=== PATIENT | male | born 1995 | race Hispanic/Latino ===

== ENCOUNTER 2018-01-26 23:21 | Inpatient (IN) | payer SELFPAY ==
[2018-01-27] MEDS ORDERED: NA CHLORIDE 0.9% 1,000 ML ONE ×2 (00:01→00:39)
[2018-01-27 00:07] LABS: Absolute Lymphocytes (CBC) 3.4 K/uL (0.7-4.9); Absolute Monocytes 1.2 K/uL (0.1-1.3); Absolute Neutrophil 13.2 K/uL (1.8-8.0); Basophils % 0.6 % (0-1.3); Hematocrit 43.2 % (39.6-49.0); Lymphocytes % 19.2 % (15.3-44.8); MCH 29.3 pg (27.0-35.0); MCV 86.6 fL (80-100); MPV 9.9 fL (7.6-11.3); Monocytes % 6.5 % (3.3-12.3); RBC Red Blood Cell Count 4.98 M/uL (4.33-5.43)
[2018-01-27 00:20] LABS: Albumin 3.5 g/dL (3.4-5.0); Bilirubin Direct 0.2 mg/dL (0-0.2); Bilirubin Total 0.6 mg/dL (0.2-1.0); Potassium 3.4 mmol/L (3.5-5.1); Protein, Total 8.4 g/dL (6.4-8.2)
[2018-01-27] MEDS ORDERED: VANCOMYCIN 0 GM/0 ML BAG ONE (00:39)
[2018-01-27] MEDS ORDERED: PIPER/TAZO/NS 3.375gm 3.375 GM/100 ML BAG ONE (00:39)
--- NOTE | 2018-01-27 01:47 | EDPHYS ---
Physician Documentation [facility] Name: Suhas Cardona Age: 22 yrs Sex: Male : 1995 Arrival Date: 01/26/2018 Time: 23:22 Bed 16 Private MD: ED Physician Mehrdad Echeverria HPI: 01/27 00:01 This 22 yrs old Male presents to ER via Ambulatory with complaints of Left Leg pm1 Pain. 00:01 The patient presents with pain. The complaints affect the left lower leg and medial pm1 aspect left thigh . Context: The problem was sustained at home, resulted from an unknown cause, the patient can fully bear weight, the patient is able to ambulate, Problem is a result from a previous injury: No. Onset: The symptoms/episode began/occurred 5 day(s) ago. Modifying factors: The symptoms are alleviated by nothing. the symptoms are aggravated by nothing. Associated signs and symptoms: Pertinent positives: fever, swelling, Pain, Pertinent negatives calf tenderness, numbness, tingling, shortness of breath, chest pain. Treatment prior to arrival includes: tylenol. Severity of symptoms: in the emergency department the symptoms are actually worse. The patient has not experienced similar symptoms in the past. The patient has not recently seen a physician. Historical: - Allergies: 01/26 23:31 No Known Allergies; lp1 - Home Meds: 23:31 None [Active]; lp1 - PMHx: 23:31 None; lp1 - PSHx: 23:31 None; lp1 - Immunization history:: Adult Immunizations up to date. - Social history:: Smoking status: Patient uses tobacco products, denies chronic smoking, but will smoke occasionally. - Ebola Screening: : No symptoms or risks identified at this time. ROS: 01/27 00:01 Eyes: Negative for injury, pain, redness, and discharge, ENT: Negative for injury, pm1 pain, and discharge, Neck: Negative for injury, pain, and swelling, Cardiovascular: Negative for chest pain, palpitations, and edema, Respiratory: Negative for shortness of breath, cough, wheezing, and pleuritic chest pain, Abdomen/GI: Negative for abdominal pain, nausea, vomiting, diarrhea, and constipation, Back: Negative for injury and pain, : Negative for injury, bleeding, discharge, and swelling. Neuro: Negative for headache, weakness, numbness, tingling, and seizure. Constitutional: Positive for chills, fever, Negative for poor PO intake. MS/extremity: Positive for pain, swelling, of the left lower leg. Skin: Positive for redness and warmth to left lower leg and medial left thigh. Exam: 00:01 Constitutional: This is a well developed, well nourished patient who is awake, alert, pm1 and in no acute distress. Head/Face: Normocephalic, atraumatic. Eyes: Pupils equal round and reactive to light, extra-ocular motions intact. Lids and lashes normal. Conjunctiva and sclera are non-icteric and not injected. Cornea within normal limits. Periorbital areas with no swelling, redness, or edema. ENT: Nares patent. No nasal discharge, no septal abnormalities noted. Tympanic membranes are normal and external auditory canals are clear. Oropharynx with no redness, swelling, or masses, exudates, or evidence of obstruction, uvula midline. Mucous membranes moist. Neck: Trachea midline, no thyromegaly or masses palpated, and no cervical lymphadenopathy. Supple, full range of motion without nuchal rigidity, or vertebral point tenderness. No Meningismus. Chest/axilla: Normal chest wall appearance and motion. Nontender with no deformity. No lesions are appreciated. Cardiovascular: Regular rate and rhythm with a normal S1 and S2. No gallops, murmurs, or rubs. Normal PMI, no JVD. No pulse deficits. Respiratory: Lungs have equal breath sounds bilaterally, clear to auscultation and percussion. No rales, rhonchi or wheezes noted. No increased work of breathing, no retractions or nasal flaring. Abdomen/GI: Soft, non-tender, with normal bowel sounds. No distension or tympany. No guarding or rebound. No evidence of tenderness throughout. Back: No spinal tenderness. No costovertebral tenderness. Full range of motion. 00:01 Musculoskeletal/extremity: Extremities: grossly normal except: noted in the left lower leg: swelling, tenderness. 00:01 Skin: Appearance: normal except for affected area, redness to left lower leg circumferentially and to medial aspect of left distal thigh. 00:01 Neuro: Orientation: is normal, Motor: is normal, moves all fours. Vital Signs: 01/26 23:32 BP 143 / 83; Pulse 133; Resp 18; Temp 99.1(O); Pulse Ox 96% on R/A; Weight 136.08 kg; lp1 Height 6 ft. 0 in. (182.88 cm); Pain 0/10; 01/27 00:30 BP 121 / 64; Pulse 106; Resp 18; Pulse Ox 98% on R/A; ea 01:04 BP 130 / 54; Pulse 108; Resp 18; Pulse Ox 95% ; ea 01:46 BP 132 / 67; Pulse 106; Resp 19; Temp 98.5; Pulse Ox 99% ; ea 02:01 BP 132 / 78; Pulse 106; Resp 19; Pulse Ox 97% ; ea 03:00 BP 148 / 84; Pulse 102; Resp 19 S; Pulse Ox 95% on 2 lpm NC; jd3 03:30 BP 137 / 73; Pulse 101; Resp 20 S; Pulse Ox 98% on 2 lpm NC; jd3 01/26 23:32 Body Mass Index 40.69 (136.08 kg, 182.88 cm) lp1 MDM: 01/26 23:27 Patient medically screened. pm1 01/27 01:27 Data reviewed: vital signs. Data interpreted: Pulse oximetry: on room air is 95 %. pm1 Interpretation: normal. Counseling: I had a detailed discussion with the patient and/or guardian regarding: the historical points, exam findings, and any diagnostic results supporting the discharge/admit diagnosis, lab results, the need for further work-up and treatment in the hospital. 01:32 Differential diagnosis: Cellulitis, DVT, Sepsis, Necrotizing fascitis. pm1 01:46 ED course: negative DVT study per U/S tech. pm1 01/26 23:36 Order name: Urine Microscopic Only pm1 01/26 23:58 Order name: Basic Metabolic Panel; Complete Time: 00:22 EDMS 01/26 23:58 Order name: Liver (Hepatic) Function; Complete Time: 00:22 EDMS 01/26 23:58 Order name: Lactate; Complete Time: 00:22 EDMS 01/26 23:58 Order name: CBC with Automated Diff; Complete Time: 00:22 EDMS 01/26 23:58 Order name: Blood Culture EDMS 01/26 23:58 Order name: Blood Culture EDMS 01/26 23:36 Order name: Extremity Venous Uni Ltd pm1 10/23 23:36 Order name: IV Saline Lock; Complete Time: 00:04 pm1 01/26 23:36 Order name: Labs collected and sent; Complete Time: 00:04 pm1 01/26 23:36 Order name: Tib Fib Left XRAY pm1 01/27 00:05 Order name: Procalcitonin; Complete Time: 01:02 EDMS Administered Medications: 01/26 23:55 Drug: NS 0.9% 1000 ml Route: IV; Rate: 1000 ml; Site: left antecubital; ea 01/27 01:00 Follow up: Response: No adverse reaction; IV Status: Completed infusion; IV Intake: ea 1000ml 00:35 Drug: Zosyn 3.375 grams Route: IVPB; Infused Over: 60 mins; Site: left antecubital; ea 02:00 Follow up: Response: No adverse reaction; IV Status: Completed infusion; IV Intake: ea 100ml 00:35 Drug: NS 0.9% 1000 ml Route: IV; Rate: 1000 ml; Site: left antecubital; ea 02:00 Follow up: Response: No adverse reaction; IV Status: Completed infusion ea 02:01 Drug: vancoMYCIN 1 grams Route: IVPB; Infused Over: 2 hrs; Site: left antecubital; ea 03:50 Follow up: Response: No adverse reaction; IV Status: Completed infusion jd3 Disposition: 05:46 Co-signature as Attending Physician, Mehrdad Echeverria MD I agree with the assessment and tw4 plan of care. Disposition: 01/27/18 01:47 Hospitalization ordered by Reina Rock for Inpatient Admission. Preliminary diagnosis is Cellulitis of left lower limb. - Bed requested for Telemetry/MedSurg (Inpatient). - Status is Inpatient Admission. jd3 - Condition is Stable. - Problem is new. - Symptoms have improved. UTI on Admission? No Signatures: Dispatcher [employer] Brittani Holt RN RN kl Pena, Laura, RN RN lp1 Griffin Leon, LEAD WEB APPLICATION DEVELOPER LEAD WEB APPLICATION DEVELOPER pm1 Shanna Pandey RN RN ea Davies, Jonathon, RN RN jd3 Wadley, Terrence, MD MD tw4 Corrections: (The following items were deleted from the chart) 00:05 01/26 23:58 Prolactin ordered. EDMS EDMS 01/27 01:29 01:15 BASIC METABOLIC PANEL+C.LAB.BRZ ordered. EDNM EDMS 01:15 CBC+H.LAB.BRZ ordered. EDNM EDMS 01:15 HEPATIC FUNCTION+C.LAB.BRZ ordered. EDMS EDMS 01:15 BLOOD CULTURE*+BA.LAB.BRZ ordered. EDNM EDMS : 01:15 Procalcitonin+C.LAB.BRZ ordered. EDNM EDMS 01:15 LACTATE+C.LAB.BRZ ordered. [facility] EDNM :52 01:47 Hospitalization Ordered by Reina Rock MD for Observation. Preliminary pm1 diagnosis is Cellulitis of left lower limb. Bed requested for Telemetry/MedSurg (observation). Status is Observation. Condition is Stable. Problem is new. Symptoms have improved. UTI on Admission? No. pm1 01:57 01:32 Differential diagnosis: Cellulitis, DVT, Sepsis pm1 pm1 03:37 01:52 01/27/2018 01:47 Hospitalization Ordered by Reina Rock MD for Inpatient kl Admission. Preliminary diagnosis is Cellulitis of left lower limb. Bed requested for Telemetry/MedSurg (Inpatient). Status is Inpatient Admission. Condition is Stable. Problem is new. Symptoms have improved. UTI on Admission? No. pm1 03:54 03:37 01/27/2018 01:47 Hospitalization Ordered by Reina Rock MD for Inpatient jd3 Admission. Preliminary diagnosis is Cellulitis of left lower limb. Bed requested for Telemetry/MedSurg (Inpatient). Status is Inpatient Admission. Condition is Stable. Problem is new. Symptoms have improved. UTI on Admission? No. kl
--- NOTE | 2018-01-27 01:47 | ER ---
Nurse's Notes [facility] Name: Suhas Cardona Age: 22 yrs Sex: Male : 1995 Arrival Date: 01/26/2018 Time: 23:22 Bed 16 Private MD: Diagnosis: Cellulitis of left lower limb Presentation: 01/26 23:30 Presenting complaint: Patient states: Left lower leg swelling x 5 days; denies pain lp1 when walking; redness and hot to touch. Transition of care: patient was not received from another setting of care. Onset of symptoms was January 26, 2018. Risk Assessment: Do you want to hurt yourself or someone else? Patient reports no desire to harm self or others. Initial Sepsis Screen: Does the patient meet any 2 criteria? No. Patient's initial sepsis screen is negative. Does the patient have a suspected source of infection? No. Patient's initial sepsis screen is negative. Care prior to arrival: None. 23:30 Method Of Arrival: Ambulatory lp1 23:30 Acuity: JUNIOR 3 lp1 Historical: - Allergies: 23:31 No Known Allergies; lp1 - Home Meds: 23:31 None [Active]; lp1 - PMHx: 23:31 None; lp1 - PSHx: 23:31 None; lp1 - Immunization history:: Adult Immunizations up to date. - Social history:: Smoking status: Patient uses tobacco products, denies chronic smoking, but will smoke occasionally. - Ebola Screening: : No symptoms or risks identified at this time. Screenin:32 Abuse screen: Denies threats or abuse. Denies injuries from another. Nutritional lp1 screening: No deficits noted. Tuberculosis screening: No symptoms or risk factors identified. Fall Risk None identified. Assessment: 23:35 General: Appears in no apparent distress. Behavior is calm, cooperative. Pain: Denies ea pain. Neuro: Level of Consciousness is awake, alert, obeys commands, Oriented to person, place, time, situation. Cardiovascular: Heart tones S1 S2 present Patient's skin is warm and dry. Respiratory: Airway is patent Respiratory effort is even, unlabored, Respiratory pattern is regular, symmetrical. GI: No signs and/or symptoms were reported involving the gastrointestinal system. Derm: Skin temperature is warm Redness, edema and warmth noted to right leg. Musculoskeletal: Range of motion: limited in left knee. 01/27 00:00 Reassessment: Patient and/or family updated on plan of care and expected duration. Pain ea level reassessed. Patient is alert, oriented x 3, equal unlabored respirations, skin warm/dry/pink. 01:03 Reassessment: Patient and/or family updated on plan of care and expected duration. Pain ea level reassessed. Patient is alert, oriented x 3, equal unlabored respirations, skin warm/dry/pink. Awaiting on Ultrasound. 01:38 Reassessment: Patient and/or family updated on plan of care and expected duration. Pain ea level reassessed. Patient is alert, oriented x 3, equal unlabored respirations, skin warm/dry/pink. air moving technician at bedside. 02:01 Reassessment: Patient and/or family updated on plan of care and expected duration. Pain ea level reassessed. Patient is alert, oriented x 3, equal unlabored respirations, skin warm/dry/pink. 03:00 Reassessment: Patient appears in no apparent distress at this time. Patient and/or jd3 family updated on plan of care and expected duration. Pain level reassessed. Patient is alert, oriented x 3, equal unlabored respirations, skin warm/dry/pink. 03:48 Reassessment: Patient appears in no apparent distress at this time. Patient and/or jd3 family updated on plan of care and expected duration. Pain level reassessed. Patient is alert, oriented x 3, equal unlabored respirations, skin warm/dry/pink. Vital Signs: 01/26 23:32 BP 143 / 83; Pulse 133; Resp 18; Temp 99.1(O); Pulse Ox 96% on R/A; Weight 136.08 kg; lp1 Height 6 ft. 0 in. (182.88 cm); Pain 0/10; 01/27 00:30 BP 121 / 64; Pulse 106; Resp 18; Pulse Ox 98% on R/A; ea 01:04 BP 130 / 54; Pulse 108; Resp 18; Pulse Ox 95% ; ea 01:46 BP 132 / 67; Pulse 106; Resp 19; Temp 98.5; Pulse Ox 99% ; ea 02:01 BP 132 / 78; Pulse 106; Resp 19; Pulse Ox 97% ; ea 03:00 BP 148 / 84; Pulse 102; Resp 19 S; Pulse Ox 95% on 2 lpm NC; jd3 03:30 BP 137 / 73; Pulse 101; Resp 20 S; Pulse Ox 98% on 2 lpm NC; jd3 01/26 23:32 Body Mass Index 40.69 (136.08 kg, 182.88 cm) lp1 ED Course: 01/26 23:22 Patient arrived in ED. ds1 23:24 Griffin Leon NP is PHCP. pm1 23:24 Mehrdad Echeverria MD is Attending Physician. pm1 23:31 Triage completed. lp1 23:32 Arm band placed on left wrist. lp1 23:40 Inserted saline lock: 20 gauge in left antecubital area, using aseptic technique. Blood ea collected. 23:51 Shanna Pandey RN is Primary Nurse. ea 01/27 00:02 Patient has correct armband on for positive identification. Bed in low position. Call ea light in reach. Side rails up X2. 01:33 X-ray completed. Portable x-ray completed in exam room. Patient tolerated procedure kw well. 01:33 Radiology exam delayed due to ORDERS NOT CROSSING OVER. kw 01:34 Tib Fib Left XRAY In Process Unspecified. EDMS 01:46 Reina Rock MD is Hospitalizing Provider. pm1 02:00 Ultrasound completed. Patient tolerated well. aa4 02:02 No provider procedures requiring assistance completed. Patient admitted, IV remains in ea place. 02:18 Primary Nurse role handed off by Shanna Pandey RN jd3 02:18 Don Ren RN is Primary Nurse. jd3 Administered Medications: 01/26 23:55 Drug: NS 0.9% 1000 ml Route: IV; Rate: 1000 ml; Site: left antecubital; ea 01/27 01:00 Follow up: Response: No adverse reaction; IV Status: Completed infusion; IV Intake: ea 1000ml 00:35 Drug: Zosyn 3.375 grams Route: IVPB; Infused Over: 60 mins; Site: left antecubital; ea 02:00 Follow up: Response: No adverse reaction; IV Status: Completed infusion; IV Intake: ea 100ml 00:35 Drug: NS 0.9% 1000 ml Route: IV; Rate: 1000 ml; Site: left antecubital; ea 02:00 Follow up: Response: No adverse reaction; IV Status: Completed infusion ea 02:01 Drug: vancoMYCIN 1 grams Route: IVPB; Infused Over: 2 hrs; Site: left antecubital; ea 03:50 Follow up: Response: No adverse reaction; IV Status: Completed infusion suzy Intake: 01:00 IV: 1000ml; Total: 1000ml. ea 02:00 IV: 100ml; Total: 1100ml. ea Outcome: 01:47 Decision to Hospitalize by Provider. pm1 02:02 Instructed on the need for admit, Demonstrated understanding of instructions. ea 03:45 Admitted to Med/surg accompanied by tech, via wheelchair, room 424, with chart, Report jd3 called to Denis ABDUL 03:45 Condition: stable 03:54 Patient left the ED. suzy Signatures: Dispatcher [employer] EDIL Pinky Finney ds1 Savita Barajas aa4 Mandie Maria Laura, RN RN lp1 Griffin Leon NP SPOOLING OPERATOR pm1 Shanna Pandey RN RN ea Davies, Jonathon, RN RN jd3
[2018-01-27] MEDS ORDERED: VANCOMYCIN 1 GM/250 ML BAG ONE (01:55)
--- NOTE | 2018-01-27 03:34 | P.HP ---
Certification for Inpatient Patient admitted to: Inpatient With expected LOS: >2 Midnights Practitioner: I am a practitioner with admitting privileges, knowledge of patient current condition, hospital course, and medical plan of care. Services: Services provided to patient in accordance with Admission requirements found in Title 42 Section 412.3 of the Code of Federal Regulations Patient History Date of Service: 01/27/18 Reason for admission: Lower extremity cellulitis History of Present Illness: Mr Cardona is a 22-year-old male with history of obesity, start about 5 days ago with left lower extremity swelling and progressive pain. He denied any trauma in this leg. He also denied fever or sweating episodes however has had some chills. Over the time he noticed he stated was increasing the swelling, and he decided to come to ER today for evaluation. He has never had similar symptoms in the past. Lab work remarkable for leukocytosis 17.9 K, lactate and procalcitonin are within normal limits. Allergies No Known Allergies Allergy (Unverified 05/11/16 21:26) Home medications list reviewed: Yes - Past Medical/Surgical History -: Obesity Past Surgical History: Reviewed- Non-Contributory - Family History Family History: Reviewed- Non-Contributory - Social History Smoking Status: Current some day smoker Counseled patient to stop smoking for: less than 10 minutes Smoking therapy provided: Yes Alcohol use: Yes CD- Drugs: No Place of Residence: Home Review of Systems 10-point ROS is otherwise unremarkable Physical Examination - Physical Exam General: Alert, In no apparent distress HEENT: Atraumatic, PERRLA, Mucous membr. moist/pink, EOMI, Sclerae nonicteric Neck: Supple, 2+ carotid pulse no bruit, No LAD, Without JVD or thyroid abnormality Respiratory: Clear to auscultation bilaterally, Normal air movement Cardiovascular: Regular rate/rhythm, Normal S1 S2 Gastrointestinal: Normal bowel sounds, No tenderness Musculoskeletal: No tenderness Integumentary: Tenderness/swelling (Left leg), Erythema, Warmth Neurological: Normal gait, Normal speech, Normal strength at 5/5 x4 extr, Normal tone, Normal affect Lymphatics: No axilla or inguinal lymphadenopathy - Studies Laboratory Data (last 24 hrs) 01/26/18 23:45: WBC 17.9 H, Hgb 14.6, Hct 43.2, Plt Count 201 01/26/18 23:45: Sodium 138, Potassium 3.4 L, BUN 18, Creatinine 1.20, Glucose 123 H, Total Bilirubin 0.6, AST 30, ALT 62, Alkaline Phosphatase 91 01/26/18 23:36: WBC Cancelled, Hgb Cancelled, Hct Cancelled, Plt Count Cancelled 01/26/18 23:36: Sodium Cancelled, Potassium Cancelled, BUN Cancelled, Creatinine Cancelled, Glucose Cancelled, Total Bilirubin Cancelled, AST Cancelled, ALT Cancelled, Alkaline Phosphatase Cancelled Assessment and Plan - Problems (Diagnosis) (1) Left leg cellulitis Current Visit: Yes Status: Acute (2) Obesity Current Visit: Yes Status: Acute Qualifiers: Obesity type: unspecified obesity type Obesity classification: unspecified obesity classification Serious obesity comorbidity presence: without serious comorbidity Qualified Code(s): E66.9 - Obesity, unspecified - Plan The patient will be admitted to the hospital due to left lower extremity cellulitis. Blood cultures are in process. He is hemodynamically stable, continue with empiric antibiotic treatment with vancomycin and Levaquin. - Advance Directives Does patient have a Living Will: No Does patient have a Durable POA for Healthcare: No - Code Status/Comfort Care Code Status Assessed: Yes Code Status: Full Code
[2018-01-27] MEDS ORDERED: ACETAMINOPHEN 500 MG TAB PO PRN (04:07)
[2018-01-27] MEDS ORDERED: ONDANSETRON 4 MG/2 ML VIAL IV PRN (04:07)
[2018-01-27] MEDS ORDERED: TRAMADOL HCL 50 MG TAB PO PRN (04:07)
[2018-01-27] MEDS ORDERED: VANCOMYCIN/NS 1 gm 1 GM/250 ML BAG IVPB ONE (04:45)
[2018-01-27 04:59] VITALS: BMI 49.2
[2018-01-27] MEDS: Levofloxacin 750mg IV 750 MG/150 ML BAG IV SCH (05:00)
[2018-01-27] MEDS: NA CHLORIDE 0.9% 1,000 ML IV SCH ×2 (05:00→15:04)
[2018-01-27 05:56] LABS: BUN Blood Urea Nitrogen 14 mg/dL (7-18); Bicarbonate 27 mmol/L (21-32); Glucose Level 119 mg/dL (74-106); Magnesium 2.1 mg/dL (1.8-2.4); Potassium 3.6 mmol/L (3.5-5.1); Sodium Level 141 mmol/L (136-145)
[2018-01-27] MEDS ORDERED: VANCOMYCIN 1 GM/VIAL ONE (06:04)
[2018-01-27] MEDS ORDERED: NA CHLORIDE 0.9% 100 ML IV ONE (06:05)
[2018-01-27] MEDS ORDERED: INFLUENZA VACCINE (for 3y+) 0.5 ML DOSE IMVAC ONE (08:00)
--- NOTE | 2018-01-27 08:05 | RAD REPORT ---
EXAM DESCRIPTION: USExtremity Venous Uni Ltd01/27/2018 2:02 am CLINICAL HISTORY: left leg pain and swelling. COMPARISON: None. FINDINGS: Left common femoral, superficial femoral, popliteal and posterior tibial veins are compre ssible and demonstrate augmentation. Doppler demonstrates good flow. IMPRESSION: No evidence of deep venous thrombosis involving the left lower extremity.
--- NOTE | 2018-01-27 08:06 | RAD REPORT ---
EXAM DESCRIPTION: Glynn Wood Left01/27/2018 1:35 am CLINICAL HISTORY: Left leg pain and swelling FINDINGS: No fracture is seen. No bony destructive lesion is noted Diffuse edema is present within the subcutaneous tissues which may indicate a cellulitis
[2018-01-27] MEDS ORDERED: POTASSIUM 25 MEQ EFFERV TAB PO ONE (09:00)
[2018-01-27] MEDS: VANCOMYCIN 2 GM in NA CHLORIDE 0.9% 500 ML IVPB SCH (16:44)
[2018-01-28] MEDS: NA CHLORIDE 0.9% 1,000 ML IV SCH ×3 (00:07→20:07)
[2018-01-28 00:55] LABS: Urine Appearance CLEAR; Urine Bilirubin NEGATIVE (NEG); Urine Blood NEGATIVE (NEG); Urine Color YELLOW; Urine Glucose NEGATIVE (NEG); Urine Protein NEGATIVE (NEG); Urine pH 6.5 (5.0-7.0)
[2018-01-28 00:57] LABS: Urine Microscopic Reflex NO UMIC
[2018-01-28] MEDS: Levofloxacin 750mg IV 750 MG/150 ML BAG IV SCH (03:24)
[2018-01-28 05:03] LABS: Basophils % 0.7 % (0-1.3); Eosinophils % 0.8 % (0-4.4); Hematocrit 40.4 % (39.6-49.0); Lymphocytes % 24.5 % (15.3-44.8); MCH 28.7 pg (27.0-35.0); MCV 88.2 fL (80-100); MPV 10.2 fL (7.6-11.3); Monocytes % 8.4 % (3.3-12.3); RBC Red Blood Cell Count 4.58 M/uL (4.33-5.43)
[2018-01-28 05:14] LABS: BUN Blood Urea Nitrogen 10 mg/dL (7-18); Bicarbonate 29 mmol/L (21-32); Glucose Level 113 mg/dL (74-106); Potassium 4.1 mmol/L (3.5-5.1); Sodium Level 141 mmol/L (136-145)
[2018-01-28] MEDS: VANCOMYCIN 2 GM in NA CHLORIDE 0.9% 500 ML IVPB SCH ×2 (05:30→17:14)
--- NOTE | 2018-01-28 13:22 | P.PN ---
Subjective Date of Service: 01/28/18 Chief Complaint: Lower extremity cellulitis Subjective: Tolerating diet, Ambulating, Improving, Doing well Review of Systems 10-point ROS is otherwise unremarkable Physical Examination - Vital Signs Temperature: 98 F Blood Pressure: 147/80 Pulse: 95 Respirations: 20 Pulse Ox (%): 94 - Physical Exam General: Alert, In no apparent distress, Obese HEENT: Atraumatic, PERRLA, EOMI Neck: Supple, JVD not distended Respiratory: Clear to auscultation bilaterally, Normal air movement Cardiovascular: Regular rate/rhythm, Normal S1 S2 Gastrointestinal: Normal bowel sounds, No tenderness Musculoskeletal: Erythema, Tenderness, Warmth Integumentary: No rashes Neurological: Normal speech, Normal tone, Normal affect Lymphatics: No axilla or inguinal lymphadenopathy - Studies Medications List Reviewed: Yes Assessment And Plan - Current Problems (Diagnosis) (1) Left leg cellulitis Onset Date: 01/28/18 Current Visit: Yes Status: Acute Plan: Most Likely 2.2 to Obesity and chronic Swelling -IV abx for now -Min Improvment -elevation and Wrap the leg -Monitor closely (2) Obesity Onset Date: 01/28/18 Current Visit: Yes Status: Chronic Qualifiers: Obesity type: unspecified obesity type Obesity classification: unspecified obesity classification Serious obesity comorbidity presence: without serious comorbidity Qualified Code(s): E66.9 - Obesity, unspecified Discharge Plan: Home Plan to discharge in: 48 Hours - Code Status/Comfort Care Code Status Assessed: Yes Critical Care: No
[2018-01-28] MEDS ORDERED: INFLUENZA VACCINE (for 3y+) 0.5 ML DOSE IMVAC ONE (15:00)
[2018-01-29] MEDS: NA CHLORIDE 0.9% 1,000 ML IV SCH ×2 (02:55→16:43)
[2018-01-29] MEDS: Levofloxacin 750mg IV 750 MG/150 ML BAG IV SCH (02:58)
[2018-01-29] MEDS: VANCOMYCIN 2 GM in NA CHLORIDE 0.9% 500 ML IVPB SCH (05:52)
[2018-01-29 06:49] LABS: BUN Blood Urea Nitrogen 9 mg/dL (7-18); Bicarbonate 29 mmol/L (21-32); Glucose Level 100 mg/dL (74-106); Magnesium 2.2 mg/dL (1.8-2.4); Potassium 3.7 mmol/L (3.5-5.1); Sodium Level 139 mmol/L (136-145)
[2018-01-29] MEDS ORDERED: POTASSIUM 25 MEQ EFFERV TAB PO ONE (09:00)
[2018-01-29] MEDS: SMZ./TMP. 800/160 MG TABLET PO SCH ×2 (11:09→21:30)
--- NOTE | 2018-01-29 14:11 | P.PN ---
Subjective Date of Service: 01/29/18 Chief Complaint: Lower extremity cellulitis Subjective: Tolerating diet, Ambulating, Improving, Doing well Review of Systems 10-point ROS is otherwise unremarkable Physical Examination - Vital Signs Temperature: 97.5 F Blood Pressure: 136/70 Pulse: 91 Respirations: 18 Pulse Ox (%): 95 - Physical Exam General: Alert, In no apparent distress HEENT: Atraumatic, PERRLA, EOMI Neck: Supple, JVD not distended Respiratory: Clear to auscultation bilaterally, Normal air movement Cardiovascular: Regular rate/rhythm, Normal S1 S2 Gastrointestinal: Normal bowel sounds, No tenderness Musculoskeletal: No tenderness Integumentary: Tenderness/swelling, Erythema, Warmth Neurological: Normal speech, Normal tone, Normal affect Lymphatics: No axilla or inguinal lymphadenopathy - Studies Medications List Reviewed: Yes Assessment And Plan - Current Problems (Diagnosis) (1) Left leg cellulitis Onset Date: 01/28/18 Current Visit: Yes Status: Acute Plan: Most Likely 2.2 to Obesity and chronic Swelling -IV abx for now -Min Improvment -elevation and Wrap the leg -Monitor closely (2) Obesity Onset Date: 01/28/18 Current Visit: Yes Status: Chronic Qualifiers: Obesity type: unspecified obesity type Obesity classification: unspecified obesity classification Serious obesity comorbidity presence: without serious comorbidity Qualified Code(s): E66.9 - Obesity, unspecified Discharge Plan: Home Plan to discharge in: 24 Hours - Code Status/Comfort Care Code Status Assessed: Yes Critical Care: No
[2018-01-29] MEDS ORDERED: VANCOMYCIN 2.25 GM in NA CHLORIDE 0.9% 500 ML IVPB SCH (17:00)
[2018-01-30] MEDS: NA CHLORIDE 0.9% 1,000 ML IV SCH ×2 (02:07→06:05)
[2018-01-30 06:29] LABS: BUN Blood Urea Nitrogen 11 mg/dL (7-18); Bicarbonate 27 mmol/L (21-32); Glucose Level 100 mg/dL (74-106); Potassium 3.9 mmol/L (3.5-5.1); Sodium Level 139 mmol/L (136-145)
[2018-01-30] MEDS: SMZ./TMP. 800/160 MG TABLET PO SCH (08:01)
[2018-01-30] MEDS ORDERED: POTASSIUM CL SA 10 MEQ TAB PO ONE (09:00)
[2018-01-30 10:42] VITALS: O2SAT 95
--- NOTE | 2018-01-30 13:07 | P.DS ---
Admission Date: 01/27/18 Discharge Date: 01/30/18 Disposition: ROUTINE DISCHARGE Discharge Condition: GOOD Reason for Admission: Lower extremity cellulitis - Problems (1) Left leg cellulitis Onset Date: 01/28/18 Current Visit: Yes Status: Acute (2) Obesity Onset Date: 01/28/18 Current Visit: Yes Status: Chronic Qualifiers: Obesity type: unspecified obesity type Obesity classification: unspecified obesity classification Serious obesity comorbidity presence: without serious comorbidity Qualified Code(s): E66.9 - Obesity, unspecified Brief History of Present Illness: Mr Cardona is a 22-year-old male with history of obesity, start about 5 days ago with left lower extremity swelling and progressive pain. He denied any trauma in this leg. He also denied fever or sweating episodes however has had some chills. Over the time he noticed he stated was increasing the swelling, and he decided to come to ER today for evaluation. He has never had similar symptoms in the past. Lab work remarkable for leukocytosis 17.9 K, lactate and procalcitonin are within normal limits. Hospital Course: Overall during the hospital stay patient remained stable. Patient was initially admitted to the hospital for cellulitis of the lower extremity most likely secondary to chronic swelling. Patient was started on IV antibiotics here in the hospital. Blood culture and wound culture were done. Both the cultures came back negative. Patient then was switched over to Bactrim DS overall. Patient showed marked improvement in his cellulitis within 24-48 hr. Patient then was discharged home under stable condition was asked to continue taking Bactrim for next 14 days. Patient was also educated extensively on weight loss as it might be causing him to have chronic venous stasis with swelling in his legs. Patient demonstrated understanding and thus was discharged home under stable condition Vital Signs/Physical Exam: Temp Pulse Resp BP Pulse Ox 97 F 85 20 138/84 95 01/30/18 08:00 01/30/18 08:00 01/30/18 08:00 01/30/18 08:00 01/30/18 08:00 General: Alert, In no apparent distress, Obese HEENT: Atraumatic, PERRLA, EOMI Neck: Supple, JVD not distended Respiratory: Clear to auscultation bilaterally, Normal air movement Cardiovascular: Regular rate/rhythm, Normal S1 S2 Gastrointestinal: Normal bowel sounds, No tenderness Musculoskeletal: No tenderness Integumentary: No rashes Neurological: Normal speech, Normal tone, Normal affect Lymphatics: No axilla or inguinal lymphadenopathy Laboratory Data at Discharge: WBC 12.2 K/uL (4.3-10.9) H D 01/28/18 03:56 Hgb 13.1 g/dL (13.6-17.9) L 01/28/18 03:56 Hct 40.4 % (39.6-49.0) 01/28/18 03:56 Plt Count 207 K/uL (152-406) 01/28/18 03:56 Sodium 139 mmol/L (136-145) 01/30/18 05:54 Potassium 3.9 mmol/L (3.5-5.1) 01/30/18 05:54 BUN 11 mg/dL (7-18) 01/30/18 05:54 Creatinine 0.70 mg/dL (0.55-1.3) 01/30/18 05:54 Glucose 100 mg/dL (74-106) 01/30/18 05:54 Magnesium 2.2 mg/dL (1.8-2.4) 01/29/18 06:00 Total Bilirubin 0.6 mg/dL (0.2-1.0) 01/26/18 23:45 AST 30 U/L (15-37) 01/26/18 23:45 ALT 62 U/L (12-78) 01/26/18 23:45 Alkaline Phosphatase 91 U/L (45-117) 01/26/18 23:45 Triglycerides 121 mg/dL (<150) 01/29/18 10:26 Cholesterol 101 mg/dL (<200) 01/29/18 10:26 HDL Cholesterol 28 mg/dL (40-60) L 01/29/18 10:26 Cholesterol/HDL Ratio 3.61 01/29/18 10:26 Home Medications: Smz./Tmp. [Bactrim Ds 800 MG/160 MG*] 1 tab PO BID #28 tab 01/30/18 New Medications: Smz./Tmp. [Bactrim Ds 800 MG/160 MG*] 1 tab PO BID #28 tab Patient Discharge Instructions: Please f.u with PCP in 1 to 2 week post discharge. New medication. Bactrim DS BID for 14 days Diet: Regular Activity: Ad serenity
[2018-01-30 14:05] VITALS: BP 137/76; TEMP 98
== END 2018-01-30 13:50 | disposition home or self-care (01) | DRG 603 ==
LOC: ER 23:21 → ERHOLD 01-27 01:50 → 4TH 01-27 03:47
PROVIDERS: ADMIT Internal Medicine; ATTEND Family Medicine
DX: L03.116 Cellulitis of left lower limb (principal); F17.210 Nicotine dependence, cigarettes, uncomplicated
CPT/HCPCS: 36415; 80048; 80061; 80076; 80202; 81003; 83036; 83605; 83735; 84145; 85025; 87040; 93971; 96361; 96365; 96366; 96367; 99285; G0008; J2543; J3370; J7030; Q2035

== ENCOUNTER 2018-03-26 19:08 | Inpatient (IN) | payer SELFPAY ==
[2018-03-26 19:48] LABS: Urine Blood 1+ (NEG); Urine Glucose NEGATIVE (NEG); Urine Protein TRACE (NEG); Urine pH 7.5 (5.0-7.0)
[2018-03-26 19:50] LABS: Absolute Neutrophil 17.5 K/uL (1.8-8.0); Basophils % 0.4 % (0-1.3); MPV 9.9 fL (7.6-11.3); RBC Red Blood Cell Count 5.32 M/uL (4.33-5.43)
--- NOTE | 2018-03-26 19:51 | EDPHYS ---
Physician Documentation [facility] Name: Suhsa Cardona Age: 22 yrs Sex: Male : 1995 Arrival Date: 03/26/2018 Time: 19:09 Bed 27 Private MD: ED Physician Emiliano Augustin HPI: 03/26 19:45 This 22 yrs old Male presents to ER via Ambulatory with complaints of Foot zandra Pain - swelling. 19:45 The patient presents with pain, swelling, tenderness. The complaints affect the lateral zandra aspect of left calf, medial aspect of left calf and left herrera. Context: The problem was sustained at home, at an unknown location, resulted from an unknown cause. Modifying factors: The symptoms are alleviated by elevation of extremity, the symptoms are aggravated by movement. Severity of symptoms: At their worst the symptoms were mild, moderate, in the emergency department the symptoms are unchanged. Historical: - Allergies: 19:21 No Known Allergies; la1 - PMHx: 19:21 None; la1 - Immunization history:: Adult Immunizations up to date. - Social history:: Smoking status: Patient/guardian denies using tobacco. - Ebola Screening: : No symptoms or risks identified at this time. - Family history:: not pertinent. ROS: 19:45 Eyes: Negative for injury, pain, redness, and discharge, ENT: Negative for injury, zandra pain, and discharge, Neck: Negative for injury, pain, and swelling, Respiratory: Negative for shortness of breath, cough, wheezing, and pleuritic chest pain, Abdomen/GI: Negative for abdominal pain, nausea, vomiting, diarrhea, and constipation, Back: Negative for injury and pain, : Negative for injury, bleeding, discharge, and swelling, Neuro: Negative for headache, weakness, numbness, tingling, and seizure, Psych: Negative for depression, anxiety, suicide ideation, homicidal ideation, and hallucinations, Allergy/Immunology: Negative for hives, rash, and allergies, Endocrine: Negative for neck swelling, polydipsia, polyuria, polyphagia, and marked weight changes, Hematologic/Lymphatic: Negative for swollen nodes, abnormal bleeding, and unusual bruising. 19:45 Constitutional: Positive for fever. 19:45 MS/extremity: Positive for pain, swelling, tenderness, of the lateral aspect of left calf, medial aspect of left calf and left herrera. Exam: 19:45 Constitutional: This is a well developed, well nourished patient who is awake, alert, zandra and in no acute distress. Head/Face: Normocephalic, atraumatic. Eyes: Pupils equal round and reactive to light, extra-ocular motions intact. Lids and lashes normal. Conjunctiva and sclera are non-icteric and not injected. Cornea within normal limits. Periorbital areas with no swelling, redness, or edema. ENT: Nares patent. No nasal discharge, no septal abnormalities noted. Tympanic membranes are normal and external auditory canals are clear. Oropharynx with no redness, swelling, or masses, exudates, or evidence of obstruction, uvula midline. Mucous membranes moist. Neck: Trachea midline, no thyromegaly or masses palpated, and no cervical lymphadenopathy. Supple, full range of motion without nuchal rigidity, or vertebral point tenderness. No Meningismus. Chest/axilla: Normal chest wall appearance and motion. Nontender with no deformity. No lesions are appreciated. Respiratory: Lungs have equal breath sounds bilaterally, clear to auscultation and percussion. No rales, rhonchi or wheezes noted. No increased work of breathing, no retractions or nasal flaring. Abdomen/GI: Soft, non-tender, with normal bowel sounds. No distension or tympany. No guarding or rebound. No evidence of tenderness throughout. Back: No spinal tenderness. No costovertebral tenderness. Full range of motion. Male : Normal genitalia with no discharge or lesions. Neuro: Awake and alert, GCS 15, oriented to person, place, time, and situation. Cranial nerves II-XII grossly intact. Motor strength 5/5 in all extremities. Sensory grossly intact. Cerebellar exam normal. Normal gait. Psych: Awake, alert, with orientation to person, place and time. Behavior, mood, and affect are within normal limits. 19:45 Cardiovascular: Rate: tachycardic, Rhythm: regular, Pulses: Pulses are 4+ in bilateral radial, brachial, femoral, popliteal, posterior tibial and and dorsalis pedis arteries.. Heart sounds: normal, Edema: is not appreciated. Vital Signs: 19:21 BP 139 / 46; Pulse 155; Resp 28; Temp 100.3(O); Pulse Ox 90% on R/A; Weight 166.47 kg; la1 Height 6 ft. 0 in. (182.88 cm); 20:56 BP 135 / 53; Pulse 122; Resp 24; Temp 99.3(O); Pulse Ox 96% on R/A; Pain 2/10; mg2 21:59 BP 119 / 62; Pulse 112; Resp 18; Temp 99.6(O); Pulse Ox 100% on R/A; Pain 0/10; mg2 19:21 Body Mass Index 49.77 (166.47 kg, 182.88 cm) MDM: 19:18 Patient medically screened. [facility] 19:45 Data reviewed: vital signs, nurses notes, lab test result(s), EKG, radiologic studies, [facility] plain films. 03/26 19:18 Order name: Basic Metabolic Panel; Complete Time: 20:33 [facility] 03/26 19:18 Order name: Blood Culture Adult (2) [facility] 03/26 19:18 Order name: CBC with Diff; Complete Time: 20:33 [facility] 03/26 19:18 Order name: Ckmb; Complete Time: 20:33 [facility] 03/26 19:18 Order name: CPK; Complete Time: 20:33 [facility] 03/26 19:18 Order name: Lactate; Complete Time: 20:33 [facility] 03/26 19:18 Order name: LFT's; Complete Time: 20:33 [facility] 03/26 19:18 Order name: Lipase; Complete Time: 20:33 [facility] 03/26 19:18 Order name: Procalcitonin; Complete Time: 20:33 [facility] 03/26 19:18 Order name: Protime (+inr); Complete Time: 20:33 [facility] 03/26 19:18 Order name: Ptt, Activated; Complete Time: 20:33 [facility] 03/26 19:18 Order name: Troponin (emerg Dept Use Only); Complete Time: 20:33 [facility] 03/26 19:18 Order name: Urine Microscopic Only; Complete Time: 20:33 [facility] 03/26 19:42 Order name: Urine Dipstick--Ancillary (enter results); Complete Time: 20:33 gm 03/26 19:18 Order name: Chest Single View XRAY; Complete Time: 20:33 [facility] 03/26 19:49 Order name: Tib Fib Left XRAY; Complete Time: 20:33 zandra 03/26 19:49 Order name: US Extremity Venous W Compression Mark; Complete Time: 22:14 zandra 03/26 21:04 Order name: Basic Metabolic Panel EDMS 03/26 21:04 Order name: Basic Metabolic Panel EDMS 03/26 21:04 Order name: CBC with Automated Diff EDMS 03/26 21:04 Order name: CBC with Automated Diff EDMS 03/26 21:04 Order name: Protime (+INR) EDMS 03/26 21:04 Order name: Protime (+INR) EDMS 03/26 21:04 Order name: PTT, Activated Partial Thromb EDMS 03/26 21:04 Order name: PTT, Activated Partial Thromb EDMS 03/26 19:18 Order name: Accucheck; Complete Time: 19:56 la1 03/26 19:18 Order name: Cardiac monitoring; Complete Time: 19:56 la1 03/26 19:18 Order name: EKG - Nurse/Tech; Complete Time: 20:15 la1 03/26 19:18 Order name: IV Saline Lock - Large Bore; Complete Time: 19:57 la1 03/26 19:18 Order name: Labs collected and sent; Complete Time: 19:57 la1 03/26 19:18 Order name: O2 Per Protocol; Complete Time: 19:57 la1 03/26 19:18 Order name: O2 Sat Monitoring; Complete Time: 20:15 la1 03/26 19:18 Order name: Urine Dipstick-Ancillary (obtain specimen); Complete Time: 19:57 la1 03/26 21:04 Order name: CONS Pharmacy Consult EDNV 03/26 21:04 Order name: NPO EDNV Administered Medications: 19:56 Drug: NS 0.9% (30 ml/kg) 30 ml/kg Route: IV; Rate: bolus; Site: right antecubital; mg2 22:43 Follow up: Response: No adverse reaction; IV Status: Completed infusion mg2 19:56 Drug: Zosyn 3.375 grams Route: IVPB; Infused Over: 60 mins; Site: right antecubital; mg2 21:00 Follow up: Response: No adverse reaction; IV Status: Completed infusion mg2 20:14 Drug: Tylenol 1000 mg Route: PO; mg2 21:00 Follow up: Response: No adverse reaction; Marked relief of symptoms mg2 20:14 Drug: morphine 4 mg Route: IVP; Site: right antecubital; mg2 21:00 Follow up: Response: No adverse reaction; Marked relief of symptoms mg2 20:14 Drug: Zofran 4 mg Route: IVP; Site: right antecubital; mg2 21:00 Follow up: Response: No adverse reaction; Marked relief of symptoms mg2 20:54 Drug: vancoMYCIN 2 grams Route: IVPB; Rate: calculated rate; Site: right antecubital; mg2 22:42 Follow up: Response: No adverse reaction; IV Status: Infusion continued upon admission mg2 Disposition: 03/26/18 19:50 Hospitalization ordered by Starla Cameron for Inpatient Admission. Preliminary diagnosis are Cellulitis and acute lymphangitis of other parts of limb, Fever, unspecified, Obesity, unspecified, Elevated white blood cell count. - Bed requested for Telemetry/MedSurg (Inpatient). - Status is Inpatient Admission. mg2 - Condition is Fair. - Problem is new. - Symptoms have improved. UTI on Admission? No Signatures: Dispatcher [employer] EDMS Emiliano Augustin MD MD cha Attema, Lee, RN RN la1 Fiordaliza Sanchez RN RN Mejia Alex RN RN mg2 Corrections: (The following items were deleted from the chart) 21:08 19:50 Hospitalization Ordered by Starla Cameron MD for Inpatient Admission. Preliminary [facility] diagnosis is Cellulitis and acute lymphangitis of other parts of limb; Fever, unspecified; Obesity, unspecified. Bed requested for Telemetry/MedSurg (Inpatient). Status is Inpatient Admission. Condition is Fair. Problem is new. Symptoms have improved. UTI on Admission? No. zandra 21:49 21:08 03/26/2018 19:50 Hospitalization Ordered by Starla Cameron MD for Inpatient cg Admission. Preliminary diagnosis is Cellulitis and acute lymphangitis of other parts of limb; Fever, unspecified; Obesity, unspecified; Elevated white blood cell count. Bed requested for Telemetry/MedSurg (Inpatient). Status is Inpatient Admission. Condition is Fair. Problem is new. Symptoms have improved. UTI on Admission? No. zandra 22:41 21:49 03/26/2018 19:50 Hospitalization Ordered by Starla Cameron MD for Inpatient mg2 Admission. Preliminary diagnosis is Cellulitis and acute lymphangitis of other parts of limb; Fever, unspecified; Obesity, unspecified; Elevated white blood cell count. Bed requested for Telemetry/MedSurg (Inpatient). Status is Inpatient Admission. Condition is Fair. Problem is new. Symptoms have improved. UTI on Admission? No. cg
--- NOTE | 2018-03-26 19:51 | ER ---
Nurse's Notes [facility] Name: Suhas Cardona Age: 22 yrs Sex: Male : 1995 Arrival Date: 03/26/2018 Time: 19:09 Bed 27 Private MD: Diagnosis: Cellulitis and acute lymphangitis of other parts of limb;Fever, unspecified;Obesity, unspecified;Elevated white blood cell count Presentation: 03/26 19:19 Presenting complaint: Patient states: I was admitted for left leg cellulitis a couple la1 weeks ago and I think its back. Transition of care: patient was not received from another setting of care. Onset of symptoms was March 26, 2018. Risk Assessment: Do you want to hurt yourself or someone else? Patient reports no desire to harm self or others. Initial Sepsis Screen: Does the patient meet any 2 criteria? RR > 20 per min. HR > 90 bpm. Does the patient have a suspected source of infection? Yes: Skin breakdown/wound If YES to both, name of provider notified: Emiliano Augustin MD. Care prior to arrival: None. 19:19 Method Of Arrival: Ambulatory la1 19:19 Acuity: JUNIOR 2 la1 Historical: - Allergies: 19:21 No Known Allergies; la1 - PMHx: 19:21 None; la1 - Immunization history:: Adult Immunizations up to date. - Social history:: Smoking status: Patient/guardian denies using tobacco. - Ebola Screening: : No symptoms or risks identified at this time. - Family history:: not pertinent. Screenin:57 Abuse screen: Denies threats or abuse. Denies injuries from another. Nutritional mg2 screening: No deficits noted. Tuberculosis screening: No symptoms or risk factors identified. Fall Risk IV access (20 points). Assessment: 19:57 General: Appears in no apparent distress. comfortable, Behavior is calm, cooperative. mg2 Pain: Complains of pain in left leg Pain does not radiate. Pain currently is 5 out of 10 on a pain scale. Quality of pain is described as aching, tender, Pain began gradually, 1 day ago. Is intermittent. Neuro: Level of Consciousness is awake, alert, obeys commands, Oriented to person, place, time, situation. Cardiovascular: Capillary refill < 3 seconds Patient's skin is warm and dry. Respiratory: Airway is patent Respiratory effort is even, unlabored, Respiratory pattern is regular, symmetrical. GI: No signs and/or symptoms were reported involving the gastrointestinal system. : No signs and/or symptoms were reported regarding the genitourinary system. EENT: No signs and/or symptoms were reported regarding the EENT system. Derm: Skin is intact, is healthy with good turgor, Skin is pink, warm \T\ dry. normal, redness/cellulitis in the left herrera. Musculoskeletal: Circulation, motion, and sensation intact. Capillary refill < 3 seconds, Swelling present in left herrera. Vital Signs: 19:21 BP 139 / 46; Pulse 155; Resp 28; Temp 100.3(O); Pulse Ox 90% on R/A; Weight 166.47 kg; la1 Height 6 ft. 0 in. (182.88 cm); 20:56 BP 135 / 53; Pulse 122; Resp 24; Temp 99.3(O); Pulse Ox 96% on R/A; Pain 2/10; mg2 21:59 BP 119 / 62; Pulse 112; Resp 18; Temp 99.6(O); Pulse Ox 100% on R/A; Pain 0/10; mg2 19:21 Body Mass Index 49.77 (166.47 kg, 182.88 cm) la1 ED Course: 19:09 Patient arrived in ED. am2 19:16 Mejia Alex, LIZABETH is Primary Nurse. mg2 19:18 Emiliano Augustin MD is Attending Physician. zandra 19:20 Triage completed. la1 19:21 Arm band placed on left wrist. la1 19:30 Inserted saline lock: 20 gauge in right antecubital area, using aseptic technique. mg2 Blood collected. 19:49 Starla Cameron MD is Hospitalizing Provider. zandra 19:57 No provider procedures requiring assistance completed. mg2 19:59 Patient has correct armband on for positive identification. Placed in gown. Bed in low mg2 position. Call light in reach. Side rails up X2. traffic monitor specialist on. Pulse ox on. NIBP on. Door closed. 20:03 Chest Single View XRAY In Process Unspecified. EDMS 20:03 Tib Fib Left XRAY In Process Unspecified. EDMS 20:44 Ultrasound completed. Patient tolerated well. sg3 20:45 US Extremity Venous W Compression Mark In Process Unspecified. EDMS 22:08 Patient admitted, IV remains in place. mg2 Administered Medications: 19:56 Drug: NS 0.9% (30 ml/kg) 30 ml/kg Route: IV; Rate: bolus; Site: right antecubital; mg2 22:43 Follow up: Response: No adverse reaction; IV Status: Completed infusion mg2 19:56 Drug: Zosyn 3.375 grams Route: IVPB; Infused Over: 60 mins; Site: right antecubital; mg2 21:00 Follow up: Response: No adverse reaction; IV Status: Completed infusion mg2 20:14 Drug: Tylenol 1000 mg Route: PO; mg2 21:00 Follow up: Response: No adverse reaction; Marked relief of symptoms mg2 20:14 Drug: morphine 4 mg Route: IVP; Site: right antecubital; mg2 21:00 Follow up: Response: No adverse reaction; Marked relief of symptoms mg2 20:14 Drug: Zofran 4 mg Route: IVP; Site: right antecubital; mg2 21:00 Follow up: Response: No adverse reaction; Marked relief of symptoms mg2 20:54 Drug: vancoMYCIN 2 grams Route: IVPB; Rate: calculated rate; Site: right antecubital; mg2 22:42 Follow up: Response: No adverse reaction; IV Status: Infusion continued upon admission mg2 Outcome: 19:50 Decision to Hospitalize by Provider. zandra 22:08 Admitted to Med/surg accompanied by tech, family with patient, via wheelchair, room mg2 207, with chart, Report called to lizabeth davenport 22:08 Condition: stable 22:08 Instructed on the need for admit, Demonstrated understanding of instructions. 22:41 Patient left the ED. mg2 Signatures: Dispatcher [employer] CATALINOOH Emiliano Augustin MD MD cha Attema, Lee, RN RN Savita Farrell Sarah sg3 Mejia Alex RN RN mg2
[2018-03-26] MEDS ORDERED: NA CHLORIDE 0.9% 250 ML ONE (19:52)
[2018-03-26] MEDS ORDERED: PIPER/TAZO/NS 3.375gm 3.375 GM/100 ML BAG ONE (19:52)
[2018-03-26] MEDS ORDERED: ACETAMINOPHEN 500 MG TAB ONE (19:52)
[2018-03-26] MEDS ORDERED: VANCOMYCIN 1 GM/VIAL ONE (19:52)
[2018-03-26] MEDS ORDERED: NA CHLORIDE 0.9% 3,000 ML ONE (19:53)
[2018-03-26 19:59] LABS: Protime INR 1.2
[2018-03-26 20:04] LABS: Urine Bacteria <20 /HPF (NONE SEEN); Urine Culture Reflex Order NOT NEEDED
[2018-03-26] MEDS ORDERED: ONDANSETRON 4 MG/2 ML VIAL ONE (20:10)
[2018-03-26] MEDS ORDERED: MORPHINE 4 MG/ML SYR ONE (20:10)
--- NOTE | 2018-03-26 20:12 | RAD REPORT ---
EXAM DESCRIPTION: RAD - Chest Single View - 03/26/2018 8:05 pm CLINICAL HISTORY: FEVER Chest pain. COMPARISON: No comparisons FINDINGS: Portable technique limits examination quality. The lungs are grossly clear. The heart is normal in size. No displaced fractures. IMPRESSION: No acute intrathoracic process suspected.
--- NOTE | 2018-03-26 20:14 | RAD REPORT ---
EXAM DESCRIPTION: RAD - Tib Fib Left - 03/26/2018 8:05 pm CLINICAL HISTORY: PAIN Swelling COMPARISON: Tib Fib Left dated 01/27/2018 FINDINGS: Soft tissue edema is present throughout the left leg. No fracture, dislocation or evidence of osteomyelitis. Small plantar calcaneal spur.
[2018-03-26 20:27] LABS: ALT/SGPT 118 U/L (12-78); AST/SGOT 54 U/L (15-37); Albumin 3.7 g/dL (3.4-5.0); Alkaline Phosphatase 121 U/L (45-117); BUN Blood Urea Nitrogen 13 mg/dL (7-18); Bicarbonate 25 mmol/L (21-32); Bilirubin Direct 0.1 mg/dL (0-0.2); Bilirubin Total 0.6 mg/dL (0.2-1.0); Creatine Phosphokinase 171 U/L (39-308); Glucose Level 114 mg/dL (74-106); Lipase 63 U/L (73-393); Potassium 3.9 mmol/L (3.5-5.1); Protein, Total 8.5 g/dL (6.4-8.2); Sodium Level 137 mmol/L (136-145); Troponin (Emerg Dept Use Only) < 0.02 ng/mL (0.0-0.045)
--- NOTE | 2018-03-26 20:54 | RAD REPORT ---
EXAM DESCRIPTION: US - Extrem Venous W Compress Mark - 03/26/2018 8:46 pm CLINICAL HISTORY: Pain;Swelling Bilateral leg edema and swelling. COMPARISON: Extremity Venous Uni Ltd dated 01/27/2018 TECHNIQUE: Real-time sonographic interrogation of the left and right lower extremity deep venous sys tems was performed. FINDINGS: Normal compressibility, flow augmentation, phasic flow and spontaneous flow is identified in both the left and right lower extremity deep venous systems. IMPRESSION: No sonographic evidence of left or right lower extremity deep venous thrombosis.
[2018-03-26] MEDS ORDERED: ACETAMINOPHEN 500 MG TAB PO PRN (21:00)
[2018-03-26] MEDS ORDERED: HYDROMORPHONE HCL 1 MG/ML INJ IV PRN (21:00)
[2018-03-26] MEDS ORDERED: ONDANSETRON 4 MG/2 ML VIAL IV PRN (21:00)
[2018-03-26] MEDS: Levofloxacin500mg IV 500 MG/100 ML BAG IV SCH (22:54)
[2018-03-26] MEDS: NA CHLORIDE 0.9% 1,000 ML IV SCH (22:54)
[2018-03-26] MEDS: PIPER/TAZO/NS 3.375gm 3.375 GM/100 ML BAG IVPB SCH (23:58)
[2018-03-27] MEDS ORDERED: PIPER/TAZO/NS 3.375gm 6.750 GM/200 ML BAG ONE
[2018-03-27 01:47] VITALS: BMI 50.1
[2018-03-27] MEDS: PIPER/TAZO/NS 3.375gm 3.375 GM/100 ML BAG IVPB SCH ×3 (05:28→17:12)
[2018-03-27 05:55] LABS: Absolute Lymphocytes (CBC) 1.3 K/uL (0.7-4.9); Absolute Monocytes 0.9 K/uL (0.1-1.3); Absolute Neutrophil 10.2 K/uL (1.8-8.0); Basophils % 0.4 % (0-1.3); Hematocrit 43.7 % (39.6-49.0); Lymphocytes % 10.5 % (15.3-44.8); MPV 9.7 fL (7.6-11.3); Monocytes % 7.2 % (3.3-12.3); RBC Red Blood Cell Count 4.91 M/uL (4.33-5.43)
[2018-03-27 06:05] LABS: Protime INR 1.29
[2018-03-27 06:28] LABS: BUN Blood Urea Nitrogen 11 mg/dL (7-18); Bicarbonate 25 mmol/L (21-32); Glucose Level 114 mg/dL (74-106); Potassium 3.8 mmol/L (3.5-5.1); Sodium Level 138 mmol/L (136-145)
[2018-03-27] MEDS: NA CHLORIDE 0.9% 1,000 ML IV SCH ×2 (07:00→17:00)
--- NOTE | 2018-03-27 08:19 | P.HP ---
Certification for Inpatient Patient admitted to: Inpatient With expected LOS: >2 Midnights Patient will require the following post-hospital care: None Practitioner: I am a practitioner with admitting privileges, knowledge of patient current condition, hospital course, and medical plan of care. Services: Services provided to patient in accordance with Admission requirements found in Title 42 Section 412.3 of the Code of Federal Regulations Patient History Date of Service: 03/26/18 Reason for admission: Cellulitis of the left lower extremity History of Present Illness: Patient is a 22-year-old gentleman who came into the hospital with erythema of the left lower extremity. Patient had pain and tenderness of the left lower extremity. Patient was found to have cellulitis of the left lower extremity. Patient had Doppler of the lower extremities which were negative. Patient also had x-rays of the lower extremity which were negative. Patient does have some chafing of the skin on the feet bilaterally. We will continue with IV antibiotics and monitor the cellulitis of the lower extremity at this time. We will continue with IV antibiotics at this time. Patient is cellulitis and velazquez over half of the left lower extremity. I believe patient would benefit from inpatient admission. Allergies No Known Allergies Allergy (Verified 03/26/18 23:07) Home Medications: NK [No Home Meds] 03/26/18 - Past Medical/Surgical History Has patient received pneumonia vaccine in the past: No Diabetic: No -: Obesity -: Cellulitis of lower extremity Past Surgical History: Patient denies surgical history - Family History Mother Notes: no medical history per patient - Social History Smoking Status: Current some day smoker Alcohol use: No CD- Drugs: No Caffeine use: Yes Place of Residence: Home Review of Systems 10-point ROS is otherwise unremarkable Physical Examination - Vital Signs Temperature: 99.6 F Blood Pressure: 135/60 Pulse: 130 Respirations: 20 Pulse Ox (%): 92 - Physical Exam General: Alert, In no apparent distress, Oriented x3 HEENT: Atraumatic, Normocephalic, PERRLA, Mucous membr. moist/pink Neck: Supple, 2+ carotid pulse no bruit, JVD not distended, No Thyromegaly, No LAD Respiratory: Clear to auscultation bilaterally, Normal air movement Cardiovascular: No edema, Normal pulses, Regular rate/rhythm, Normal S1 S2, No murmurs Gastrointestinal: Normal bowel sounds, Hypoactive, Soft and benign, Non- distended, No tenderness Musculoskeletal: No clubbing, No swelling, No contractures Integumentary: No rashes, No breakdown, No significant lesion, No tenderness/ swelling Neurological: Normal gait, Normal speech, Normal strength at 5/5 x4 extr, Normal tone, Sensation intact, Cranial nerves 3-12 intact Lymphatics: No axilla or inguinal lymphadenopathy - Studies Laboratory Data (last 24 hrs) 03/26/18 19:30: PT 14.2 H, INR 1.20, APTT 38.6 H 03/26/18 19:30: WBC 19.6 H, Hgb 15.3, Hct 47.0, Plt Count 180 03/26/18 19:30: Sodium 137, Potassium 3.9, BUN 13, Creatinine 0.99, Glucose 114 H, Total Bilirubin 0.6, AST 54 H, ALT 118 H, Alkaline Phosphatase 121 H, Lipase 63 L Assessment & Plan - Problems (Diagnosis) (1) Left leg cellulitis Onset Date: 01/28/18 Current Visit: No Status: Acute (2) Obesity Onset Date: 01/28/18 Current Visit: No Status: Chronic Qualifiers: Obesity classification: adult class 3 (BMI >= 40) Serious obesity comorbidity presence: without serious comorbidity Body mass index: BMI 50.0- 59.9 (3) Elevated procalcitonin Current Visit: Yes Status: Acute (4) Leukocytosis Current Visit: Yes Status: Acute (5) Coagulopathy Current Visit: Yes Status: Acute (6) Elevated liver enzymes Current Visit: Yes Status: Acute - Plan 1. Continue with IV antibiotic 2. Continue with monitoring wound 3. Monitor blood sugars closely 4. Gentle IV hydration 5. Monitor CBC 6. Strict blood sugar monitoring 7. Pain control 8. Will need to follow-up for elevated liver function testing 9. GI and DVT prophylaxis Discharge Plan: Home Plan to discharge in: Greater than 2 days - Advance Directives Does patient have a Living Will: No Does patient have a Durable POA for Healthcare: No - Code Status/Comfort Care Code Status Assessed: Yes Code Status: Full Code Critical Care: No Time Spent Managing PTS Care (In Minutes): 50
--- NOTE | 2018-03-27 13:58 | P.PN ---
Subjective Date of Service: 03/27/18 Chief Complaint: Cellulitis of the left lower extremity Subjective: No new changes, No C/O voiced, Improving Patient seen and examined at bedside. chart reviewed and case discussed with nursing staff Review of Systems 10-point ROS is otherwise unremarkable Physical Examination - Vital Signs Temperature: 99.6 F Blood Pressure: 135/60 Pulse: 130 Respirations: 20 Pulse Ox (%): 92 - Physical Exam General: Alert, In no apparent distress, Oriented x3 HEENT: Atraumatic, PERRLA, EOMI Neck: Supple, JVD not distended Respiratory: Clear to auscultation bilaterally, Normal air movement Cardiovascular: Regular rate/rhythm, Normal S1 S2 Gastrointestinal: Normal bowel sounds, No tenderness Musculoskeletal: No tenderness Integumentary: Rash(es), Tenderness/swelling (LLE), Erythema, Warmth Neurological: Normal speech, Normal tone, Normal affect Lymphatics: No axilla or inguinal lymphadenopathy - Studies Laboratory Data (last 24 hrs) 03/26/18 19:30: PT 14.2 H, INR 1.20, APTT 38.6 H 03/26/18 19:30: WBC 19.6 H, Hgb 15.3, Hct 47.0, Plt Count 180 03/26/18 19:30: Sodium 137, Potassium 3.9, BUN 13, Creatinine 0.99, Glucose 114 H, Total Bilirubin 0.6, AST 54 H, ALT 118 H, Alkaline Phosphatase 121 H, Lipase 63 L Assessment And Plan - Current Problems (Diagnosis) (1) Left leg cellulitis Onset Date: 01/28/18 Current Visit: No Status: Acute (2) Leukocytosis Current Visit: Yes Status: Acute (3) Coagulopathy Current Visit: Yes Status: Acute (4) Elevated liver enzymes Current Visit: Yes Status: Acute (5) Obesity Current Visit: No Status: Chronic Qualifiers: Obesity classification: adult class 3 (BMI >= 40) Serious obesity comorbidity presence: without serious comorbidity Body mass index: BMI 50.0- 59.9 - Plan Left leg cellulitis (Acute 01/28/18) L03.116 Continue IV antibiotics: Levaquin and zosyn Continue monitoring wound Monitor blood sugars Elevated liver enzymes (Acute) R74.8 Will recheck tomorrow, if still elevated, may proced with a RUQ ultrasound to evaluate for possible fatty liver He may need outpatient GI follow up Avoid acetaminophen Coagulopathy (Acute) Likely 2/2 abnormal LFTs Elevated procalcitonin (Acute) R79.89 Leukocytosis (Acute) D72.829 Likely 2/2 the cellulitis. continue current management with the IVF and IV antibiotics. Obesity (Chronic 01/28/18) E66.9 DVT prophylaxis: Lovenox GI prophylaxis: Not needed Diet: Regular Disposition: Pending symptomatic improvement.
--- NOTE | 2018-03-27 16:09 | EKG ---
Test Date: 2018-03-26 Test Time: 20:07:51 [employer] Supervisor: MG MEASUREMENT RESULTS: Intervals: Rate: 134 [place]: 148 QRSD: 82 QT: 288 QTc: 430 [place]: P: 54 [place]: 148 QRS: 49 T: 59 INTERPRETIVE STATEMENTS: Sinus tachycardia Possible Inferior infarct, age undetermined Anterior infarct, age undetermined Abnormal ECG No previous ECG available for comparison Electronically Signed On 03-27-18 16:08:45 H[employer] OPERATOR by Darwin Jason
[2018-03-27] MEDS: Levofloxacin500mg IV 500 MG/100 ML BAG IV SCH (20:29)
[2018-03-28] MEDS: PIPER/TAZO/NS 3.375gm 3.375 GM/100 ML BAG IVPB SCH ×3 (00:15→16:54)
[2018-03-28] MEDS: NA CHLORIDE 0.9% 1,000 ML IV SCH ×3 (04:36→23:00)
[2018-03-28 05:59] LABS: Absolute Lymphocytes (CBC) 2.4 K/uL (0.7-4.9); Absolute Monocytes 0.8 K/uL (0.1-1.3); Absolute Neutrophil 4.7 K/uL (1.8-8.0); Basophils % 0.6 % (0-1.3); Hematocrit 42.4 % (39.6-49.0); Lymphocytes % 30.3 % (15.3-44.8); MPV 9.7 fL (7.6-11.3); Monocytes % 9.8 % (3.3-12.3); RBC Red Blood Cell Count 4.82 M/uL (4.33-5.43)
[2018-03-28 06:04] LABS: Protime INR 1.26
[2018-03-28 06:12] LABS: ALT/SGPT 80 U/L (12-78); AST/SGOT 25 U/L (15-37); Albumin 3.1 g/dL (3.4-5.0); Alkaline Phosphatase 86 U/L (45-117); BUN Blood Urea Nitrogen 9 mg/dL (7-18); Bicarbonate 26 mmol/L (21-32); Bilirubin Total 0.4 mg/dL (0.2-1.0); Glucose Level 130 mg/dL (74-106); Potassium 3.8 mmol/L (3.5-5.1); Protein, Total 7.9 g/dL (6.4-8.2); Sodium Level 139 mmol/L (136-145)
--- NOTE | 2018-03-28 11:03 | P.PN ---
Subjective Date of Service: 03/28/18 Chief Complaint: Cellulitis of the left lower extremity Subjective: No new changes, No C/O voiced, Improving Patient seen and examined at bedside. chart reviewed and case discussed with nursing staff Review of Systems 10-point ROS is otherwise unremarkable Physical Examination - Vital Signs Temperature: 97.6 F Blood Pressure: 125/67 Pulse: 101 Respirations: 18 Pulse Ox (%): 97 - Physical Exam General: Alert, In no apparent distress, Oriented x3 HEENT: Atraumatic, PERRLA, EOMI Neck: Supple, JVD not distended Respiratory: Clear to auscultation bilaterally, Normal air movement Cardiovascular: Regular rate/rhythm, Normal S1 S2 Gastrointestinal: Normal bowel sounds, No tenderness Musculoskeletal: No tenderness Integumentary: Tenderness/swelling, Erythema, Warmth (Improved) Neurological: Normal speech, Normal tone, Normal affect Lymphatics: No axilla or inguinal lymphadenopathy Assessment And Plan - Current Problems (Diagnosis) (1) Left leg cellulitis Onset Date: 01/28/18 Current Visit: No Status: Acute (2) Leukocytosis Current Visit: Yes Status: Acute (3) Coagulopathy Current Visit: Yes Status: Acute (4) Elevated liver enzymes Current Visit: Yes Status: Acute (5) Obesity Current Visit: No Status: Chronic Qualifiers: Obesity classification: adult class 3 (BMI >= 40) Serious obesity comorbidity presence: without serious comorbidity Body mass index: BMI 50.0- 59.9 - Plan Left leg cellulitis (Acute 01/28/18) L03.116 Continue IV antibiotics: Levaquin and zosyn Continue monitoring wound, improving erythema and warmth. Monitor blood sugars Elevated liver enzymes (Acute) R74.8 Improved being LFTs. Monitor via labs tomorrow He may need outpatient GI follow up Avoid acetaminophen Coagulopathy (Acute) Likely 2/2 abnormal LFTs Improving Elevated procalcitonin (Acute) R79.89 Leukocytosis (Acute) D72.829 Likely 2/2 the cellulitis. Resolved. Continue IV antibiotics. Obesity (Chronic 01/28/18) E66.9 DVT prophylaxis: Lovenox GI prophylaxis: Not needed Diet: Regular Disposition: Pending symptomatic improvement. Likely discharge in the next 24 hr on oral antibiotics. Discharge Plan: Home Plan to discharge in: 24 Hours Physician Review: Patient Assessed, Agree with Above Assessment and Plan Time Spent Managing PTS Care (In Minutes): 35
[2018-03-28] MEDS: Levofloxacin500mg IV 500 MG/100 ML BAG IV SCH (20:25)
[2018-03-28 22:09] VITALS: O2SAT 97
[2018-03-29] MEDS: PIPER/TAZO/NS 3.375gm 3.375 GM/100 ML BAG IVPB SCH ×2 (00:32→09:16)
[2018-03-29 05:51] LABS: Absolute Lymphocytes (CBC) 3.5 K/uL (0.7-4.9); Absolute Monocytes 0.8 K/uL (0.1-1.3); Absolute Neutrophil 5.7 K/uL (1.8-8.0); Basophils % 1.1 % (0-1.3); Eosinophils % 2.1 % (0-4.4); Hematocrit 44.2 % (39.6-49.0); MPV 10.2 fL (7.6-11.3); Monocytes % 7.9 % (3.3-12.3); RBC Red Blood Cell Count 5.05 M/uL (4.33-5.43)
[2018-03-29 06:18] LABS: ALT/SGPT 70 U/L (12-78); AST/SGOT 30 U/L (15-37); Albumin 3.1 g/dL (3.4-5.0); Alkaline Phosphatase 86 U/L (45-117); BUN Blood Urea Nitrogen 10 mg/dL (7-18); Bicarbonate 26 mmol/L (21-32); Bilirubin Total 0.3 mg/dL (0.2-1.0); Glucose Level 113 mg/dL (74-106); Potassium 3.8 mmol/L (3.5-5.1); Protein, Total 7.8 g/dL (6.4-8.2); Sodium Level 141 mmol/L (136-145)
[2018-03-29 07:36] LABS: Urine White Blood Cell Casts OK
[2018-03-29 07:43] LABS: Blood Morphology Comment NOT SEEN (NOT SEEN); Platelet Estimate ADEQ; Platelets, Giant FEW
[2018-03-29] MEDS: NA CHLORIDE 0.9% 1,000 ML IV SCH (09:43)
[2018-03-29 12:29] VITALS: BP 156/96; TEMP 97.6
--- NOTE | 2018-03-29 14:09 | P.DS ---
Admission Date: 03/28/18 Discharge Date: 03/29/18 Disposition: ROUTINE DISCHARGE Discharge Condition: GOOD Reason for Admission: Cellulitis of the left lower extremity - Problems (1) Left leg cellulitis Onset Date: 01/28/18 Status: Acute (2) Leukocytosis Status: Resolved (3) Coagulopathy Status: Resolved (4) Elevated liver enzymes Onset Date: 03/28/18 Status: Resolved (5) Obesity Status: Chronic Qualifiers: Obesity classification: adult class 3 (BMI >= 40) Serious obesity comorbidity presence: without serious comorbidity Body mass index: BMI 50.0- 59.9 Brief History of Present Illness: Patient is a 22-year-old gentleman who came into the hospital with erythema of the left lower extremity. Patient had pain and tenderness of the left lower extremity. Patient was found to have cellulitis of the left lower extremity. Patient had Doppler of the lower extremities which were negative. Patient also had x-rays of the lower extremity which were negative. Patient does have some chafing of the skin on the feet bilaterally. We will continue with IV antibiotics and monitor the cellulitis of the lower extremity at this time. We will continue with IV antibiotics at this time. Patient is cellulitis and velazquez over half of the left lower extremity. I believe patient would benefit from inpatient admission. Hospital Course: Patient admitted for left leg cellulitis. He was started on IV antibiotics, Levaquin and Zosyn. IV antibiotics improved his symptoms of the lower extremity erythema warmth and swelling. Incidentally, his LFTs are elevated which improved and returned to baseline prior to discharge. At the time of discharge, patient's wound was improved from the initial markings, he was afebrile, his LFTs were back to normal. All blood cultures remained negative and his leukocytosis resolved. He was discharged on oral Bactrim 2 double- strength tablets every 12 hr for 7 days. He was instructed to follow up with his primary care physician 1 week Vital Signs/Physical Exam: Temp Pulse Resp BP Pulse Ox 97.6 F 110 H 16 156/96 H 98 03/29/18 12:00 03/29/18 12:00 03/29/18 12:00 03/29/18 12:00 03/29/18 12:00 General: Alert, In no apparent distress, Oriented x3 HEENT: Atraumatic, PERRLA, EOMI Neck: Supple, JVD not distended Respiratory: Clear to auscultation bilaterally, Normal air movement Cardiovascular: Regular rate/rhythm, Normal S1 S2 Gastrointestinal: Normal bowel sounds, No tenderness Musculoskeletal: Erythema, Warmth Integumentary: No rashes Neurological: Normal speech, Normal tone, Normal affect Lymphatics: No axilla or inguinal lymphadenopathy Laboratory Data at Discharge: WBC 10.4 K/uL (4.3-10.9) D 03/29/18 05:30 Hgb 15.1 g/dL (13.6-17.9) 03/29/18 05:30 Hct 44.2 % (39.6-49.0) 03/29/18 05:30 Plt Count 177 K/uL (152-406) 03/29/18 05:30 PT 14.9 SECONDS (9.5-12.5) H 03/28/18 05:45 INR 1.26 03/28/18 05:45 APTT 37.3 SECONDS (24.3-36.9) H 03/27/18 05:27 Sodium 141 mmol/L (136-145) 03/29/18 05:30 Potassium 3.8 mmol/L (3.5-5.1) 03/29/18 05:30 BUN 10 mg/dL (7-18) 03/29/18 05:30 Creatinine 0.70 mg/dL (0.55-1.3) 03/29/18 05:30 Glucose 113 mg/dL (74-106) H 03/29/18 05:30 Total Bilirubin 0.3 mg/dL (0.2-1.0) 03/29/18 05:30 AST 30 U/L (15-37) 03/29/18 05:30 ALT 70 U/L (12-78) 03/29/18 05:30 Alkaline Phosphatase 86 U/L (45-117) 03/29/18 05:30 Lipase 63 U/L (73-393) L 03/26/18 19:30 Home Medications: Sulfamethoxazole/Trimethoprim [Bactrim Ds Tablet] 2 each PO BID #14 tablet 03/29 New Medications: Sulfamethoxazole/Trimethoprim [Bactrim Ds Tablet] 2 each PO BID #14 tablet Patient Discharge Instructions: Follow up with the primary care physician in 1 week for follow up. Initially, you had elevated liver enzymes which have now gone back down to normal. Your primary care physician may want to repeat test to recheck this at a later time. New medications: Bactrim 2 double-strength tablets every 12 hr for 7 days. This is an antibiotic for your infection. Please return to the ER for worsening symptoms Diet: Regular Activity: Ad serenity Physician Review: Patient Assessed, Agree with Above Assessment and Plan Time spent managing pt's care (in minutes): 55
== END 2018-03-29 13:32 | disposition home or self-care (01) | DRG 603 ==
LOC: ER 19:08 → ERHOLD 21:00 → 2ND 22:19 → OBSVTOIN 03-28 16:02
PROVIDERS: ADMIT Hospitalist; ATTEND Family Medicine
DX: L03.116 Cellulitis of left lower limb (principal); D68.9 Coagulation defect, unspecified; Z68.43 Body mass index [BMI] 50.0-59.9, adult; D72.829 Elevated white blood cell count, unspecified; R94.5 Abnormal results of liver function studies; E66.9 Obesity, unspecified; F17.210 Nicotine dependence, cigarettes, uncomplicated; R79.89 Other specified abnormal findings of blood chemistry
CPT/HCPCS: 36415; 71045; 80048; 80053; 80076; 81003; 81015; 82550; 82553; 82962; 83605; 83690; 84145; 84484; 85025; 85610; 85730; 87040; 93005; 93970; 96365; 96366; 96367; 96368; 96375; 99285; G0378; J2405; J2543; J7030

== ENCOUNTER 2018-05-21 14:32 | Inpatient (IN) | payer SELFPAY ==
[2018-05-21] MEDS ORDERED: ACETAMINOPHEN 500 MG TAB ONE (15:00)
[2018-05-21] MEDS ORDERED: NA CHLORIDE 0.9% 3,000 ML ONE (15:30)
[2018-05-21] MEDS ORDERED: IBUPROFEN 400 MG TAB ONE (15:30)
[2018-05-21 15:41] LABS: Absolute Lymphocytes (CBC) 1.5 K/uL (0.7-4.9); Absolute Monocytes 1.1 K/uL (0.1-1.3); Absolute Neutrophil 13.6 K/uL (1.8-8.0); Basophils % 0.2 % (0-1.3); Hematocrit 45.4 % (39.6-49.0); Lymphocytes % 9.4 % (15.3-44.8); MPV 9.8 fL (7.6-11.3); RBC Red Blood Cell Count 5.24 M/uL (4.33-5.43)
[2018-05-21 15:54] LABS: Protime INR 1.24
--- NOTE | 2018-05-21 15:56 | RAD REPORT ---
EXAM DESCRIPTION: USExtrem Venous W Compress Bil05/21/2018 3:46 pm CLINICAL HISTORY: Bilateral leg swelling COMPARISON: March 2018 FINDINGS: The common femoral, superficial femoral, popliteal and posterior tibial veins bilaterally are compressible and demonstrate augmentation. Doppler demonstrates good flow. IMPRESSION: No evidence of deep venous thrombosis involving either lower extremity.
[2018-05-21 15:59] LABS: ALT/SGPT 119 U/L (12-78); AST/SGOT 45 U/L (15-37); Albumin 4.1 g/dL (3.4-5.0); Alkaline Phosphatase 124 U/L (45-117); BUN Blood Urea Nitrogen 13 mg/dL (7-18); Bicarbonate 31 mmol/L (21-32); Bilirubin Direct 0.2 mg/dL (0-0.2); Bilirubin Total 0.6 mg/dL (0.2-1.0); Glucose Level 105 mg/dL (74-106); Lipase 68 U/L (73-393); Potassium 3.2 mmol/L (3.5-5.1); Protein, Total 8.7 g/dL (6.4-8.2); Sodium Level 140 mmol/L (136-145)
--- NOTE | 2018-05-21 16:19 | EKG ---
Test Date: 2018-05-21 Test Time: 14:53:09 Route Delivery Driver: JORDIN MEASUREMENT RESULTS: Intervals: Rate: 145 [place]: 140 QRSD: 80 QT: 268 QTc: 416 [place]: P: 63 [place]: 140 QRS: 83 T: 25 INTERPRETIVE STATEMENTS: Sinus tachycardia Cannot rule out Anterior infarct, age undetermined Abnormal ECG Compared to ECG 03/26/2018 20:07:51 No significant changes Electronically Signed On 05-21-18 16:18:12 DIRECTOR OF DIGITAL PLATFORMS by Darwin Jason
[2018-05-21] MEDS ORDERED: PIPER/TAZO/NS 3.375gm 3.375 GM/100 ML BAG ONE (16:36)
--- NOTE | 2018-05-21 16:47 | RAD REPORT ---
EXAM DESCRIPTION: Jamilah Single View05/21/2018 4:07 pm CLINICAL HISTORY: Shortness of breath COMPARISON: March 2018 FINDINGS: The lungs appear clear of acute infiltrate. The heart is normal size IMPRESSION: No acute abnormalities displayed
--- NOTE | 2018-05-21 16:48 | EDPHYS ---
Physician Documentation [facility] Name: Suhas Cardona Age: 22 yrs Sex: Male : 1995 Arrival Date: 05/21/2018 Time: 14:35 Bed 16 Private MD: None, None ED Physician Emiliano Augustin HPI: 05/21 15:15 This 22 yrs old Male presents to ER via Ambulatory with complaints of Leg cp Swelling. 15:15 The patient presents with pain, that is acute, swelling, tenderness. The complaints cp affect the left lower leg. Context: resulted from an unknown cause, the patient can fully bear weight, the patient is able to ambulate, with mild difficulty. Onset: The symptoms/episode began/occurred suddenly, this morning. 15:15 Associated signs and symptoms: Pertinent positives: fever, warmth. cp Historical: - Allergies: 14:44 No Known Allergies; sv - PMHx: 14:44 Cellulitis; sv - PSHx: 14:44 None; sv - Immunization history:: Adult Immunizations up to date. - Social history:: Smoking status: Patient/guardian denies using tobacco, Patient/guardian denies using alcohol. - Ebola Screening: : Patient negative for fever greater than or equal to 101.5 degrees Fahrenheit, and additional compatible Ebola Virus Disease symptoms Patient denies exposure to infectious person Patient denies travel to an Ebola-affected area in the 21 days before illness onset. ROS: 15:20 Constitutional: Positive for fever, Negative for poor PO intake. cp 15:20 Eyes: Negative for injury, pain, redness, and discharge. cp 15:20 Neck: Negative for pain with movement, pain at rest, stiffness. 15:20 Cardiovascular: Negative for chest pain. 15:20 Respiratory: Negative for cough, shortness of breath, wheezing. 15:20 Abdomen/GI: Negative for abdominal pain, nausea, vomiting, and diarrhea. 15:20 Skin: Positive for erythema, swelling, of the left lower leg. 15:20 All other systems are negative. Exam: 15:05 ECG was reviewed by the Attending Physician. cp 15:25 Constitutional: The patient appears in no acute distress, alert, awake, cp non-diaphoretic, non-toxic, well developed, well nourished, febrile. 15:25 Head/Face: Normocephalic, atraumatic. Eyes: Pupils equal round and reactive to light, cp extra-ocular motions intact. Lids and lashes normal. Conjunctiva and sclera are non-icteric and not injected. Cornea within normal limits. Periorbital areas with no swelling, redness, or edema. ENT: Nares patent. No nasal discharge, no septal abnormalities noted. Tympanic membranes are normal and external auditory canals are clear. Oropharynx with no redness, swelling, or masses, exudates, or evidence of obstruction, uvula midline. Mucous membranes moist. Chest/axilla: Normal chest wall appearance and motion. Nontender with no deformity. No lesions are appreciated. 15:25 Cardiovascular: Rate: tachycardic, Rhythm: regular, Pulses: Pulses are 2+ in right radial artery, right dorsalis pedis artery, left radial artery and left dorsalis pedis artery. JVD: is not appreciated. 15:25 Respiratory: the patient does not display signs of respiratory distress, Respirations: normal, no use of accessory muscles, no retractions, no splinting, no tachypnea, labored breathing, is not present, Breath sounds: are clear throughout, no decreased breath sounds, no stridor, no wheezing. 15:25 Abdomen/GI: Exam negative for discomfort, distension, guarding, Inspection: abdomen appears normal. 15:25 Back: pain, is absent, ROM is normal. 15:25 Musculoskeletal/extremity: Extremities: grossly normal except: noted in the left lower leg: erythema, swelling, tenderness. 15:25 Skin: cellulitis, that is moderate, irregular, on the left lower leg. Vital Signs: 14:44 BP 144 / 79; Pulse 144; Resp 22; Temp 102.8(O); Pulse Ox 100% ; Weight 145.15 kg; sv Height 6 ft. 0 in. (182.88 cm); 15:20 BP 140 / 75; Pulse 135; Resp 18; Pulse Ox 100% on R/A; hj 16:29 BP 132 / 76; Pulse 115; Resp 18; Temp 99.8; Pulse Ox 100% on R/A; hj 17:38 BP 158 / 78; Pulse 92; Resp 18; Pulse Ox 98% on R/A; hj 18:20 BP 160 / 78; Pulse 91; Resp 18; Pulse Ox 100% on 2 lpm NC; hj 19:15 BP 153 / 83; Pulse 79; Resp 18; Pulse Ox 99% on R/A; ea 20:05 BP 132 / 83; Pulse 80; Resp 18; Temp 98.2(O); Pulse Ox 99% on R/A; ea 14:44 Body Mass Index 43.40 (145.15 kg, 182.88 cm) sv MDM: 14:49 Patient medically screened. cp 16:00 Differential diagnosis: sepsis, cellulitis, DVT, abscess. cp 16:44 Data reviewed: vital signs, nurses notes, lab test result(s), EKG, radiologic studies, cp ultrasound. Physician consultation: Cassidy Delgado MD was called at 16:44, was contacted at 16:44, regarding admission, to the medical/surgical unit. patient's condition, and will see patient in ED, shortly. 05/21 15:15 Order name: Basic Metabolic Panel; Complete Time: 16:20 cp 05/21 15:15 Order name: Blood Culture Adult (2) cp 05/21 15:15 Order name: CBC with Diff; Complete Time: 16:20 cp 05/21 16:44 Interpretation: Normal except: WBC 16.3; JASMYNE% 83.4; LYM% 9.4; NEUT A 13.6. cp 05/21 15:15 Order name: Lactate; Complete Time: 16:20 cp 05/21 15:15 Order name: LFT's; Complete Time: 16:20 cp 05/21 15:15 Order name: Lipase; Complete Time: 16:20 cp 05/21 15:15 Order name: Procalcitonin; Complete Time: 16:43 cp 05/21 15:15 Order name: Protime (+inr); Complete Time: 16:20 cp 05/21 15:15 Order name: Ptt, Activated; Complete Time: 16:20 cp 05/21 15:15 Order name: Urine Microscopic Only cp 05/21 15:15 Order name: Chest Single View XRAY cp 05/21 15:15 Order name: US Extremity Venous W Compression Mark; Complete Time: 16:20 cp 05/21 19:59 Order name: Urine Dipstick--Ancillary (enter results) ag4 05/21 15:04 Order name: EKG; Complete Time: 15:04 hj 05/21 15:15 Order name: Accucheck; Complete Time: 15:15 cp 02/15 15:15 Order name: Cardiac monitoring; Complete Time: 15:15 cp 15 15:15 Order name: EKG - Nurse/Tech; Complete Time: 15:15 cp 15 15:15 Order name: IV Saline Lock - Large Bore; Complete Time: 15:15 cp 0215 15:15 Order name: Labs collected and sent; Complete Time: 15:16 cp 15 15:15 Order name: O2 Per Protocol; Complete Time: 15:16 cp 05/21 15:15 Order name: O2 Sat Monitoring; Complete Time: 15:16 cp EC:05 Rate is 145 beats/min. Rhythm is regular. [place] interval is normal. QRS interval is cp normal. QT interval is normal. Interpreted by me. Reviewed by me. Administered Medications: 14:47 Drug: Tylenol 1000 mg Route: PO; hj 15:30 Follow up: Response: No adverse reaction; Temperature is decreased; Pain is decreased hj 15:15 Drug: Motrin 800 mg Route: PO; hj 17:38 Follow up: Response: No adverse reaction hj 15:15 Drug: NS 0.9% 1000 ml Route: IV; Rate: 1 bolus; Site: right antecubital; hj 17:09 Follow up: IV Status: Completed infusion hj 15:48 Drug: NS 0.9% 1000 ml Route: IV; Rate: 1 bolus; Site: right antecubital; hj 17:10 Follow up: IV Status: Completed infusion hj 15:48 Drug: NS 0.9% 1000 ml Route: IV; Rate: 1 bolus; Site: right antecubital; hj 17:10 Follow up: IV Status: Infusion continued upon admission hj 16:22 Drug: Zosyn 3.375 grams Route: IVPB; Infused Over: 60 mins; Site: right antecubital; hj 17:05 Follow up: IV Status: Completed infusion hj 17:06 Drug: vancoMYCIN 1.5 grams Route: IVPB; Rate: calculated rate; Site: right antecubital; hj 17:09 Follow up: IV Status: Infusion continued upon admission Disposition: 05/21/18 16:47 Hospitalization ordered by Cassidy Delgado for Inpatient Admission. Preliminary diagnosis is Cellulitis and acute lymphangitis of other parts of limb - left lower leg. - Bed requested for Telemetry/MedSurg (Inpatient). - Status is Inpatient Admission. ea - Condition is Stable. - Problem is new. - Symptoms have improved. UTI on Admission? No Addendum: 05/24/2018 05:47 Co-signature as Attending Physician, Emiliano Augustin MD I agree with the assessment and c schmitt plan of care. Signatures: Dispatcher [employer] EDLaurie Fitzpatrick, RN Billie Pierre RN RN dw Anderson, Corey, MD MD cha Joaquin, Henry RN CHANTELL Emiliano Myers PA PA cp Antunez, Elena, RN RN ea Corrections: (The following items were deleted from the chart) 05/21 18:06 16:47 Hospitalization Ordered by Cassidy Delgado MD for Inpatient Admission. Preliminary dw diagnosis is Cellulitis and acute lymphangitis of other parts of limb - left lower leg. Bed requested for Telemetry/MedSurg (Inpatient). Status is Inpatient Admission. Condition is Stable. Problem is new. Symptoms have improved. UTI on Admission? No. cp 20:26 18:06 05/21/2018 16:47 Hospitalization Ordered by Cassidy Delgado MD for Inpatient ea Admission. Preliminary diagnosis is Cellulitis and acute lymphangitis of other parts of limb - left lower leg. Bed requested for Telemetry/MedSurg (Inpatient). Status is Inpatient Admission. Condition is Stable. Problem is new. Symptoms have improved. UTI on Admission? No. dw
--- NOTE | 2018-05-21 16:48 | ER ---
Nurse's Notes [facility] Name: Suhas Cardona Age: 22 yrs Sex: Male : 1995 Arrival Date: 05/21/2018 Time: 14:35 Bed 16 Private MD: None, None Diagnosis: Cellulitis and acute lymphangitis of other parts of limb-left lower leg Presentation: 05/21 14:43 Presenting complaint: Patient states: LLE redness/swelling started this morning. sv Transition of care: patient was not received from another setting of care. Onset of symptoms was May 21, 2018. Care prior to arrival: None. 14:43 Method Of Arrival: Ambulatory sv 14:43 Acuity: JUNIOR 2 sv 14:50 Risk Assessment: Do you want to hurt yourself or someone else? Patient reports no hj desire to harm self or others. Initial Sepsis Screen: Does the patient meet any 2 criteria? Temp <36.0*C (96.8*F)) or > 38.3*C (100.9*F). HR > 90 bpm. Yes Does the patient have a suspected source of infection? Yes:. Triage Assessment: 14:46 General: Appears in no apparent distress. uncomfortable, obese, Behavior is calm, sv cooperative, appropriate for age. Pain: Complains of pain in left leg. Neuro: Level of Consciousness is awake, alert, obeys commands, Oriented to person, place, time, situation, Gait is steady. Respiratory: Respiratory effort is even, unlabored, Respiratory pattern is regular, symmetrical. Historical: - Allergies: 14:44 No Known Allergies; sv - PMHx: 14:44 Cellulitis; sv - PSHx: 14:44 None; sv - Immunization history:: Adult Immunizations up to date. - Social history:: Smoking status: Patient/guardian denies using tobacco, Patient/guardian denies using alcohol. - Ebola Screening: : Patient negative for fever greater than or equal to 101.5 degrees Fahrenheit, and additional compatible Ebola Virus Disease symptoms Patient denies exposure to infectious person Patient denies travel to an Ebola-affected area in the 21 days before illness onset. Screenin:48 Abuse screen: Denies threats or abuse. Denies injuries from another. Nutritional hj screening: No deficits noted. Tuberculosis screening: No symptoms or risk factors identified. Fall Risk None identified. Assessment: 14:51 General: Appears in no apparent distress. uncomfortable, obese, Behavior is calm, hj cooperative, appropriate for age. Pain: Complains of pain in left leg. Neuro: Level of Consciousness is awake, alert, obeys commands, Oriented to person, place, time, situation, Appropriate for age. Cardiovascular: Capillary refill < 3 seconds Patient's skin is warm and dry. Rhythm is sinus tachycardia. Respiratory: Airway is patent Respiratory effort is even, unlabored, Respiratory pattern is regular, symmetrical. GI: No signs and/or symptoms were reported involving the gastrointestinal system. : No signs and/or symptoms were reported regarding the genitourinary system. EENT: Derm: No signs and/or symptoms reported regarding the dermatologic system. Musculoskeletal: Reports pain in left leg. 15:29 Reassessment: wheeled to US;. hj 18:19 Reassessment: Patient and/or family updated on plan of care and expected duration. Pain hj level reassessed. Patient is alert, oriented x 3, equal unlabored respirations, skin warm/dry/pink. called 2nd floor and informed that pt needs to fo up before shift change;. 18:43 Reassessment: repeat lactate sent;. hj 18:46 Reassessment: floor nurse hasnt called for report;. hj 19:18 General: Appears in no apparent distress. Behavior is calm, cooperative, appropriate ea for age. Pain: Denies pain. Neuro: Level of Consciousness is awake, alert, obeys commands, Oriented to person, place, time, situation. Cardiovascular: Patient's skin is warm and dry. Respiratory: Airway is patent Respiratory effort is even, unlabored, Respiratory pattern is regular, symmetrical. GI: Abdomen is non-distended. Derm: redness and warmth to left leg. Musculoskeletal: Circulation, motion, and sensation intact. 20:01 Reassessment: Report called to Eliu ABDUL on second floor. ea 20:15 Reassessment: Patient and/or family updated on plan of care and expected duration. Pain ea level reassessed. Patient is alert, oriented x 3, equal unlabored respirations, skin warm/dry/pink. Pt taken to second floor via wheelchair per tech, pt tolerating well. Vital Signs: 14:44 BP 144 / 79; Pulse 144; Resp 22; Temp 102.8(O); Pulse Ox 100% ; Weight 145.15 kg; sv Height 6 ft. 0 in. (182.88 cm); 15:20 BP 140 / 75; Pulse 135; Resp 18; Pulse Ox 100% on R/A; hj 16:29 BP 132 / 76; Pulse 115; Resp 18; Temp 99.8; Pulse Ox 100% on R/A; hj 17:38 BP 158 / 78; Pulse 92; Resp 18; Pulse Ox 98% on R/A; hj 18:20 BP 160 / 78; Pulse 91; Resp 18; Pulse Ox 100% on 2 lpm NC; hj 19:15 BP 153 / 83; Pulse 79; Resp 18; Pulse Ox 99% on R/A; ea 20:05 BP 132 / 83; Pulse 80; Resp 18; Temp 98.2(O); Pulse Ox 99% on R/A; ea 14:44 Body Mass Index 43.40 (145.15 kg, 182.88 cm) sv ED Course: 14:35 Patient arrived in ED. mr 14:35 None, None is Private Physician. mr 14:44 Triage completed. sv 14:46 Arm band placed on. sv 14:47 Michael Diaz, CHANTELL is Primary Nurse. hj 14:48 Emiliano Myers PA is PHCP. cp 14:48 Emiliano Augustin MD is Attending Physician. cp 14:51 Patient has correct armband on for positive identification. Placed in gown. Bed in low hj position. Call light in reach. Side rails up X 1. Adult w/ patient. 15:04 Initial lab(s) drawn, by me, sent to lab. Inserted saline lock: 20 gauge in right hj antecubital area, using aseptic technique. Blood collected. 15:20 EKG done, by computer technology teacher. reviewed by Emiliano CRUZ. sm3 15:32 First set of blood cultures drawn by me, Second set of blood cultures drawn by me. hj 15:55 US Extremity Venous W Compression Mark In Process Unspecified. EDMS 16:08 Chest Single View XRAY In Process Unspecified. EDMS 16:46 Cassidy Delgado MD is Hospitalizing Provider. cp 19:20 No provider procedures requiring assistance completed. Patient admitted, IV remains in ea place. Administered Medications: 14:47 Drug: Tylenol 1000 mg Route: PO; hj 15:30 Follow up: Response: No adverse reaction; Temperature is decreased; Pain is decreased hj 15:15 Drug: Motrin 800 mg Route: PO; hj 17:38 Follow up: Response: No adverse reaction hj 15:15 Drug: NS 0.9% 1000 ml Route: IV; Rate: 1 bolus; Site: right antecubital; hj 17:09 Follow up: IV Status: Completed infusion hj 15:48 Drug: NS 0.9% 1000 ml Route: IV; Rate: 1 bolus; Site: right antecubital; hj 17:10 Follow up: IV Status: Completed infusion hj 15:48 Drug: NS 0.9% 1000 ml Route: IV; Rate: 1 bolus; Site: right antecubital; hj 17:10 Follow up: IV Status: Infusion continued upon admission hj 16:22 Drug: Zosyn 3.375 grams Route: IVPB; Infused Over: 60 mins; Site: right antecubital; hj 17:05 Follow up: IV Status: Completed infusion hj 17:06 Drug: vancoMYCIN 1.5 grams Route: IVPB; Rate: calculated rate; Site: right antecubital; hj 17:09 Follow up: IV Status: Infusion continued upon admission Outcome: 16:47 Decision to Hospitalize by Provider. cp 19:00 Instructed on the need for admit, Demonstrated understanding of instructions. ea 20:00 Admitted to Med/surg accompanied by rob, room 232, with chart, Report called to yael Nowak RN 20:00 Condition: stable 20:26 Patient left the ED. yael Signatures: Dispatcher [employer] EDMS Laurie Perdomo RN RN sv Rivera, Mary mr Joaquin, Henry, RN RN hj Page, Corey, PA PA cp Antunez, Elena, RN RN ea Montes, Shakira 3 Corrections: (The following items were deleted from the chart) 14:47 14:44 Pulse Ox 100%; Temp 102.8F Oral; 145.15 kg; Height 6 ft. 0 in.; BMI: 43.4; sv sv 14:49 14:43 Acuity: JUNIOR 3 sv sv 17:39 17:38 BP 158 / 78; Pulse 97bpm; Resp 18bpm; Pulse Ox 98% RA; hj hj 17:45 17:38 BP 158 / 78; Pulse 108bpm; Resp 18bpm; Pulse Ox 98% RA; hj hj
[2018-05-21] MEDS ORDERED: VANCOMYCIN 1.5 GM in NA CHLORIDE 0.9% 500 ML IVPB SCH ×2 (17:00→21:00)
--- NOTE | 2018-05-21 17:43 | P.HP ---
Certification for Inpatient With expected LOS: >2 Midnights Practitioner: I am a practitioner with admitting privileges, knowledge of patient current condition, hospital course, and medical plan of care. Services: Services provided to patient in accordance with Admission requirements found in Title 42 Section 412.3 of the Code of Federal Regulations Patient History Date of Service: 05/21/18 Reason for admission: left leg pain History of Present Illness: Patient is a 22-year-old gentleman with pmhx of recurrent cellulites who came into the hospital with erythema and pain of the left lower extremity which started today . Patient had fever at home was fed temperature of 102 patient denied any recent trauma or open wounds to his left foot but noted to have scanning of the toenails, patient denied nausea vomiting, shortness of breath, chest pain, palpitation, change in urinary or bowel habits In ER patient is tachycardic with heart rate of 124 and febrile with temperature of 102 and decision was made to admit the patient to telemetry, DVT study was done which was negative Allergies No Known Allergies Allergy (Verified 03/26/18 23:07) Home Medications: Sulfamethoxazole/Trimethoprim [Bactrim Ds Tablet] 2 each PO BID #14 tablet 03/29 - Past Medical/Surgical History Diabetic: No -: Obesity -: Cellulitis of lower extremity Past Surgical History: Patient denies surgical history - Family History Family History: Reviewed- Non-Contributory - Family History Mother Notes: no medical history per patient - Social History Smoking Status: Current every day smoker Counseled patient to stop smoking for: less than 10 minutes Alcohol use: Yes CD- Drugs: No Caffeine use: Yes Review of Systems 10-point ROS is otherwise unremarkable General: Fever Physical Examination - Physical Exam General: Alert, Oriented x3 HEENT: Atraumatic, Normocephalic Neck: Supple, JVD not distended Respiratory: Clear to auscultation bilaterally, Normal air movement Cardiovascular: No edema, Normal pulses, Regular rate/rhythm, Normal S1 S2 Gastrointestinal: Normal bowel sounds, Soft and benign, Non-distended, No tenderness Musculoskeletal: Erythema (Left leg redness) Neurological: Normal strength at 5/5 x4 extr - Studies Laboratory Data (last 24 hrs) 05/21/18 15:20: PT 14.5 H, INR 1.24, APTT 41.3 H 05/21/18 15:20: WBC 16.3 H, Hgb 15.3, Hct 45.4, Plt Count 194 05/21/18 15:20: Sodium 140, Potassium 3.2 L, BUN 13, Creatinine 0.93, Glucose 105, Total Bilirubin 0.6, AST 45 H, ALT 119 H, Alkaline Phosphatase 124 H, Lipase 68 L Assessment and Plan - Problems (Diagnosis) (1) Left leg cellulitis Onset Date: 01/28/18 Current Visit: Yes Status: Acute (2) Obesity Onset Date: 01/28/18 Current Visit: Yes Status: Chronic Qualifiers: Obesity classification: adult class 3 (BMI >= 40) Serious obesity comorbidity presence: without serious comorbidity Body mass index: BMI 50.0- 59.9 (3) Elevated liver enzymes Onset Date: 03/28/18 Current Visit: Yes Status: Chronic (4) Leukocytosis Onset Date: 03/28/18 Current Visit: Yes Status: Acute - Plan Assessment and Left leg cellulitis Continue IV antibiotics vancomycin and Zosyn Monitor erythema Follow-up for blood cultures and urine culture f/up UTOX Leukocytosis Follow-up c cultures Procalcitonin within normal level elevated liver enzymes Follow-up repeat LFTs Liver ultrasound Follow up hepatitis profile obesity dvt ppx with lovenox Discharge Plan: Home Plan to discharge in: 48 Hours - Advance Directives Does patient have a Living Will: No Does patient have a Durable POA for Healthcare: No
[2018-05-21] MEDS ORDERED: ACETAMINOPHEN 500 MG TAB PO PRN (20:02)
[2018-05-21] MEDS ORDERED: PIPER/TAZO/NS 3.375gm 3.375 GM/100 ML BAG IVPB SCH (20:02)
[2018-05-21] MEDS: PIPER/TAZO/NS 3.375gm 3.375 GM/100 ML BAG IVPB SCH ×2 (20:43→23:03)
[2018-05-21] MEDS ORDERED: VANCOMYCIN 2 GM in NA CHLORIDE 0.9% 500 ML IVPB SCH (21:00)
[2018-05-21 21:09] LABS: Albumin 3.3 g/dL (3.4-5.0); Bilirubin Direct 0.2 mg/dL (0-0.2); Bilirubin Total 0.7 mg/dL (0.2-1.0); Protein, Total 7.6 g/dL (6.4-8.2); Thyroid Stimulating Hormone 0.764 uIU/mL (0.360-3.740)
[2018-05-21] MEDS ORDERED: POTASSIUM CL SA 10 MEQ TAB PO ONE (21:24)
[2018-05-21] MEDS ORDERED: PIPER/TAZO/NS 3.375gm 6.750 GM/200 ML BAG ONE (21:38)
[2018-05-21 22:44] VITALS: BMI 51.3
[2018-05-21 23:30] VITALS: O2SAT 96
[2018-05-22 00:27] LABS: Urine Appearance CLEAR; Urine Bilirubin NEGATIVE (NEG); Urine Blood NEGATIVE (NEG); Urine Color YELLOW; Urine Glucose NEGATIVE (NEG); Urine Microscopic Reflex NO UMIC; Urine Protein NEGATIVE (NEG); Urine Specific Gravity 1.015 (1.005-1.030); Urine pH 6.5 (5.0-7.0)
[2018-05-22 00:37] LABS: Barbiturates NEGATIVE (NEGATIVE); Benzodiazepines NEGATIVE (NEGATIVE); Cocaine NEGATIVE (NEGATIVE); METHAMPHETAM NEGATIVE (NEGATIVE); Methadone NEGATIVE (NEGATIVE); Opiates NEGATIVE (NEGATIVE); Phencyclidine NEGATIVE (NEGATIVE); THC Cannibis NEGATIVE (NEGATIVE)
[2018-05-22] MEDS ORDERED: VANCOMYCIN 2 GM/500 ML BAG ONE (03:12)
[2018-05-22] MEDS: PIPER/TAZO/NS 3.375gm 3.375 GM/100 ML BAG IVPB SCH ×3 (03:38→17:00)
[2018-05-22] MEDS: VANCOMYCIN 2 GM in NA CHLORIDE 0.9% 500 ML IVPB SCH ×2 (04:30→16:29)
[2018-05-22 06:05] LABS: ALT/SGPT 112 U/L (12-78); AST/SGOT 42 U/L (15-37); Albumin 3.7 g/dL (3.4-5.0); Alkaline Phosphatase 121 U/L (45-117); BUN Blood Urea Nitrogen 7 mg/dL (7-18); Bicarbonate 28 mmol/L (21-32); Bilirubin Total 0.7 mg/dL (0.2-1.0); Glucose Level 105 mg/dL (74-106); Potassium 3.6 mmol/L (3.5-5.1); Protein, Total 8.9 g/dL (6.4-8.2); Sodium Level 140 mmol/L (136-145)
[2018-05-22] MEDS ORDERED: POTASSIUM CL SA 10 MEQ TAB PO ONE (06:18)
[2018-05-22 06:31] LABS: Absolute Lymphocytes (CBC) 1.9 K/uL (0.7-4.9); Absolute Monocytes 0.7 K/uL (0.1-1.3); Absolute Neutrophil 5.5 K/uL (1.8-8.0); Basophils % 0.6 % (0-1.3); Eosinophils % 0.7 % (0-4.4); Hematocrit 47.2 % (39.6-49.0); Lymphocytes % 23.4 % (15.3-44.8); MPV 10.3 fL (7.6-11.3); Monocytes % 8.5 % (3.3-12.3); RBC Red Blood Cell Count 5.45 M/uL (4.33-5.43)
[2018-05-22] MEDS: ENOXAPARIN 40 MG/0.4 ML SQ SCH (09:52)
--- NOTE | 2018-05-22 14:06 | P.PN ---
Subjective Date of Service: 05/22/18 Chief Complaint: left leg pain Still Having redness of the left leg Patient is tachycardiac, EKG done which shows sinus tachy with no acute ST T wave changes will give 1 liter of fluid and monitor response f/up lactic acid level Leukocytosis improved Follow-up cultures f/up liver US heptitis profile pending Review of Systems 10-point ROS is otherwise unremarkable Integumentary: Rash (Left lower leg redness) Physical Examination - Vital Signs Temperature: 97.2 F Blood Pressure: 148/70 Pulse: 134 Respirations: 18 Pulse Ox (%): 92 - Physical Exam General: Alert, Oriented x3 HEENT: Atraumatic, Normocephalic, PERRLA Neck: Supple Respiratory: Clear to auscultation bilaterally, Normal air movement Cardiovascular: No edema, Normal pulses, Regular rate/rhythm, Normal S1 S2 Gastrointestinal: Normal bowel sounds, Soft and benign, Non-distended Musculoskeletal: Erythema (Redness of the left leg ) Neurological: Normal strength at 5/5 x4 extr - Studies Laboratory Data (last 24 hrs) 05/21/18 15:20: PT 14.5 H, INR 1.24, APTT 41.3 H 05/21/18 15:20: WBC 16.3 H, Hgb 15.3, Hct 45.4, Plt Count 194 05/21/18 15:20: Sodium 140, Potassium 3.2 L, BUN 13, Creatinine 0.93, Glucose 105, Total Bilirubin 0.6, AST 45 H, ALT 119 H, Alkaline Phosphatase 124 H, Lipase 68 L Assessment And Plan - Current Problems (Diagnosis) (1) Left leg cellulitis Onset Date: 01/28/18 Current Visit: Yes Status: Acute (2) Obesity Onset Date: 01/28/18 Current Visit: Yes Status: Chronic Qualifiers: Obesity classification: adult class 3 (BMI >= 40) Serious obesity comorbidity presence: without serious comorbidity Body mass index: BMI 50.0- 59.9 (3) Elevated liver enzymes Onset Date: 03/28/18 Current Visit: Yes Status: Chronic (4) Leukocytosis Onset Date: 03/28/18 Current Visit: Yes Status: Resolved (5) Sepsis Current Visit: Yes Status: Acute Qualifiers: Sepsis type: sepsis due to unspecified organism Qualified Code(s): A41.9 - Sepsis, unspecified organism - Plan Assessment and Left leg cellulitis and sepsis Continue IV antibiotics vancomycin and Zosyn Monitor erythema Follow-up for blood cultures and urine culture f/up UTOX Leukocytosis Follow-up c cultures Procalcitonin within normal level elevated liver enzymes Follow-up repeat LFTs Liver ultrasound Follow up hepatitis profile obesity dvt ppx with lovenox
[2018-05-22] MEDS ORDERED: NA CHLORIDE 0.9% 1,000 ML IV SCH (15:00)
--- NOTE | 2018-05-22 20:13 | RAD REPORT ---
EXAM DESCRIPTION: US - Abdomen Exam Limited - 05/22/2018 8:03 pm CLINICAL HISTORY: elevated lfts COMPARISON: No comparisons FINDINGS: The gallbladder demonstrates no gallstones. No pericholecystic fluid or gallbladder wall t hickening. The common bile duct is normal measuring 3 mm. The liver demonstrates diffuse fatty liver. IMPRESSION: Diffuse fatty liver. Negative gallbladder/biliary tree findings.
[2018-05-23] MEDS: PIPER/TAZO/NS 3.375gm 3.375 GM/100 ML BAG IVPB SCH ×2 (01:42→09:44)
[2018-05-23 05:27] LABS: Absolute Lymphocytes (CBC) 2.7 K/uL (0.7-4.9); Absolute Monocytes 0.8 K/uL (0.1-1.3); Absolute Neutrophil 4.9 K/uL (1.8-8.0); Basophils % 0.5 % (0-1.3); Eosinophils % 1.4 % (0-4.4); Hematocrit 44.9 % (39.6-49.0); Lymphocytes % 31.6 % (15.3-44.8); MPV 10.2 fL (7.6-11.3); Monocytes % 9.3 % (3.3-12.3); RBC Red Blood Cell Count 5.17 M/uL (4.33-5.43)
[2018-05-23 05:38] LABS: ALT/SGPT 80 U/L (12-78); AST/SGOT 34 U/L (15-37); Albumin 3.2 g/dL (3.4-5.0); Alkaline Phosphatase 99 U/L (45-117); BUN Blood Urea Nitrogen 10 mg/dL (7-18); Bicarbonate 28 mmol/L (21-32); Bilirubin Total 0.4 mg/dL (0.2-1.0); Glucose Level 127 mg/dL (74-106); Phosphorus 2.8 mg/dL (2.5-4.9); Potassium 3.4 mmol/L (3.5-5.1); Protein, Total 7.9 g/dL (6.4-8.2); Sodium Level 140 mmol/L (136-145)
[2018-05-23] MEDS: VANCOMYCIN 2 GM in NA CHLORIDE 0.9% 500 ML IVPB SCH (05:52)
--- NOTE | 2018-05-23 07:41 | EKG ---
Test Date: 2018-05-22 Test Time: 10:46:38 Food Quality Tester: ASHLEY MEASUREMENT RESULTS: Intervals: Rate: 113 PA: 166 QRSD: 90 QT: 324 QTc: 444 Hartman: P: 75 PA: 166 QRS: 69 T: 69 INTERPRETIVE STATEMENTS: Sinus tachycardia Otherwise normal ECG Compared to ECG 05/21/2018 14:53:09 Myocardial infarct finding no longer present Electronically Signed On 05-23-18 07:39:29 OIL HEAT TECHNICIAN by Darwin Jason
[2018-05-23] MEDS ORDERED: POTASSIUM CL SA 10 MEQ TAB PO ONE (09:00)
[2018-05-23] MEDS: ENOXAPARIN 40 MG/0.4 ML SQ SCH (09:44)
--- NOTE | 2018-05-23 15:05 | P.PN ---
Subjective Date of Service: 05/23/18 Chief Complaint: left leg pain redness improved Abx switched to clindamyicn consult dr Villanueva for infected toe nails heptitis profile pending liver US fatty liver ,can f/up with GI as OP pt is uninsured and needs podaitry assessment before discharge for onychomycosis because i believe its the source of his recurrent cellulitis Physical Examination - Vital Signs Temperature: 98.2 F Blood Pressure: 144/90 Pulse: 87 Respirations: 18 Pulse Ox (%): 97 - Physical Exam General: Alert, Oriented x3 HEENT: Atraumatic, Normocephalic, PERRLA Neck: Supple Respiratory: Clear to auscultation bilaterally, Normal air movement Cardiovascular: No edema, Normal pulses, Regular rate/rhythm, Normal S1 S2 Gastrointestinal: Normal bowel sounds, Soft and benign, Non-distended Musculoskeletal: Erythema (of left leg ) Neurological: Normal speech, Normal strength at 5/5 x4 extr, Normal tone Assessment And Plan - Current Problems (Diagnosis) (1) Left leg cellulitis Onset Date: 01/28/18 Current Visit: Yes Status: Acute (2) Obesity Onset Date: 01/28/18 Current Visit: Yes Status: Chronic Qualifiers: Obesity classification: adult class 3 (BMI >= 40) Serious obesity comorbidity presence: without serious comorbidity Body mass index: BMI 50.0- 59.9 (3) Elevated liver enzymes Onset Date: 03/28/18 Current Visit: Yes Status: Chronic (4) Leukocytosis Onset Date: 03/28/18 Current Visit: Yes Status: Resolved (5) Sepsis Current Visit: Yes Status: Acute Qualifiers: Sepsis type: sepsis due to unspecified organism Qualified Code(s): A41.9 - Sepsis, unspecified organism - Plan Assessment and Left leg cellulitis and sepsis was on vancomycin and Zosyn switched to clindamycin Monitor erythema Follow-up for blood cultures and urine culture UTOX -ve Leukocytosis improved Follow-up c cultures Procalcitonin within normal level elevated liver enzymes Liver ultrasoundfatty liver Follow up hepatitis profile onychomycosis podaitry consult obesity dvt ppx with lovenox
[2018-05-23] MEDS ORDERED: VANCOMYCIN 2.25 GM in NA CHLORIDE 0.9% 500 ML IVPB SCH (17:00)
[2018-05-23] MEDS: CLINDAMYCIN PHOSPHATE 600 MG in NA CHLORIDE 0.9% 50 ML IV SCH (17:09)
[2018-05-24] MEDS: CLINDAMYCIN PHOSPHATE 600 MG in NA CHLORIDE 0.9% 50 ML IV SCH ×2 (00:07→05:37)
[2018-05-24 06:24] LABS: Absolute Lymphocytes (CBC) 2.8 K/uL (0.7-4.9); Absolute Monocytes 0.7 K/uL (0.1-1.3); Absolute Neutrophil 4.5 K/uL (1.8-8.0); Basophils % 0.7 % (0-1.3); Eosinophils % 1.8 % (0-4.4); Hematocrit 46.4 % (39.6-49.0); MPV 9.7 fL (7.6-11.3); Monocytes % 8.6 % (3.3-12.3); RBC Red Blood Cell Count 5.38 M/uL (4.33-5.43)
[2018-05-24 07:10] LABS: ALT/SGPT 98 U/L (12-78); AST/SGOT 56 U/L (15-37); Albumin 3.5 g/dL (3.4-5.0); Alkaline Phosphatase 90 U/L (45-117); BUN Blood Urea Nitrogen 10 mg/dL (7-18); Bicarbonate 27 mmol/L (21-32); Bilirubin Total 0.5 mg/dL (0.2-1.0); Glucose Level 96 mg/dL (74-106); Potassium 3.8 mmol/L (3.5-5.1); Protein, Total 8.4 g/dL (6.4-8.2); Sodium Level 142 mmol/L (136-145)
[2018-05-24] MEDS ORDERED: POTASSIUM CL SA 10 MEQ TAB PO ONE (09:00)
[2018-05-24] MEDS: ENOXAPARIN 40 MG/0.4 ML SQ SCH (09:03)
[2018-05-24 10:14] VITALS: TEMP 97.4
--- NOTE | 2018-05-24 10:42 | P.CNS ---
Date of Consult: 05/24/18 Reason for Consult: onychomycosis Chief Complaint: left leg pain Allergies No Known Allergies Allergy (Verified 05/21/18 20:57) Home Medications: NK [No Home Meds] 05/21/18 - Past Medical/Surgical History Diabetic: No -: Obesity -: Cellulitis of lower extremity left -: none - Family History Mother Notes: no medical history per patient - Social History Smoking Status: Current some day smoker Alcohol use: Yes CD- Drugs: No Caffeine use: Yes Place of Residence: Home Review of Systems 10-point ROS is otherwise unremarkable Physical Examination Temp Pulse Resp BP Pulse Ox 97.4 F 95 H 20 132/79 97 05/24/18 08:00 05/24/18 08:00 05/24/18 08:00 05/24/18 08:00 05/24/18 08:00 General: Alert, In no apparent distress, Oriented x3 Cardiovascular: Normal pulses (2/4 dp and pt pulses bilateral), Edema (mild edema noted bilateral lower extremity) Capillary refill: <2 Seconds Musculoskeletal: No clubbing, No contractures, No erythema, No tenderness, No warmth Integumentary: Other (thickening with subungual debris of nails 1 and 5 bilateral and left fourth digit. No cellulitis noted perinail, no drainage. Erythematous rash noted bilateral feet in mocassin distribution.) Neurological: Sensation intact - Problems (1) Tinea unguium Current Visit: Yes Status: Acute (2) Tinea pedis Current Visit: Yes Status: Acute Conclusions/Impression: Patient demonstrates onychomycosis with tinea pedis. Patient has elevated liver enzymes and I would not recommend oral Lamisil as it is metabolized by the liver. Would recommend Ciclopirox to nails daily as well as topical antifungal cream to skin Physician Review: Patient Assessed, Agree with Above Assessment and Plan Time Spent Managing Pts care (In Minutes): 30
--- NOTE | 2018-05-24 11:04 | P.DS ---
Admission Date: 05/21/18 Discharge Date: 05/24/18 Primary Care Provider: none Disposition: ROUTINE DISCHARGE Discharge Condition: GOOD Reason for Admission: left leg pain Consultations: Podiatry-Dr. Villanueva Procedures: Venous Doppler: COMPARISON: March 2018 FINDINGS: The common femoral, superficial femoral, popliteal and posterior tibial veins bilaterally are compressible and demonstrate augmentation. Doppler demonstrates good flow. IMPRESSION: No evidence of deep venous thrombosis involving either lower extremity. ABUS: COMPARISON: No comparisons FINDINGS: The gallbladder demonstrates no gallstones. No pericholecystic fluid or gallbladder wall thickening. The common bile duct is normal measuring 3 mm. The liver demonstrates diffuse fatty liver. IMPRESSION: Diffuse fatty liver. Negative gallbladder/biliary tree findings. CXR: COMPARISON: March 2018 FINDINGS: The lungs appear clear of acute infiltrate. The heart is normal size IMPRESSION: No acute abnormalities displayed Medical Problem List: Left lower extremity cellulitis, recurrent Tenia unguium and pedis Obesity, BMI 51.4 Elevated liver function with noted fatty liver Suspect obstructive sleep apnea Brief History of Present Illness: 22-year-old male presented to the emergency room with left lower extremity cellulitis. Patient with history of recurrent cellulitis. Patient was admitted for treatment. Hospital Course: Patient presented to the emergency room with left lower extremity cellulitis. Patient with history of recurrent cellulitis. Patient was treated during his stay. Patient responded to antibiotic therapy. At discharge he will continue with Augmentin 500 mg 1 pill twice daily for 7 days. Hygiene address. Education on prevention of cellulitis will be provided. Recommend for patient to establish care with a PCP to follow up his care. Patient with tenia pedis and unguium. Patient seen and evaluated by podiatry. Patient not a candidate for Lamisil due to elevated liver function. Podiatry recommends antifungal cream to the feet daily. He is to wash his feet daily. He is to keep his feet dry. Podiatry also recommends Ciclopirox drops to the toenails for his tenia unguium. Patient may follow up with podiatry as an outpatient to further address. Patient found have elevated liver function. Hepatitis panel pending at discharge. This can be followed up by his PCP. Abdominal ultrasound shows fatty liver. Education on fatty liver provided. Lifestyle modification education will be provided this well. Patient with obesity, BMI 51.4. Lifestyle modification education and weight loss recommended. Patient may have underlying obstructive sleep apnea. Recommend for sleep study as an outpatient to further evaluate. Vital Signs/Physical Exam: Temp Pulse Resp BP Pulse Ox 97.4 F 95 H 20 132/79 97 05/24/18 08:00 05/24/18 08:00 05/24/18 08:00 05/24/18 08:00 05/24/18 08:00 General: Alert, In no apparent distress, Oriented x3, Cooperative HEENT: Atraumatic, Mucous membr. moist/pink Neck: Supple, No Thyromegaly Respiratory: Clear to auscultation bilaterally, Normal air movement Cardiovascular: Normal pulses, Regular rate/rhythm Gastrointestinal: Normal bowel sounds, Soft and benign, Non-distended, No tenderness, No masses, No rebound, No guarding Musculoskeletal: No erythema, No tenderness, No warmth Integumentary: No tenderness/swelling, No erythema, No warmth, No cyanosis, Other (tenia pedis and unguium noted) Neurological: Normal speech, Normal strength at 5/5 x4 extr, Normal tone, Normal affect Laboratory Data at Discharge: WBC 8.3 K/uL (4.3-10.9) 05/24/18 06:09 Hgb 15.6 g/dL (13.6-17.9) 05/24/18 06:09 Hct 46.4 % (39.6-49.0) 05/24/18 06:09 Plt Count 208 K/uL (152-406) 05/24/18 06:09 PT 14.5 SECONDS (9.5-12.5) H 05/21/18 15:20 INR 1.24 05/21/18 15:20 APTT 41.3 SECONDS (24.3-36.9) H 05/21/18 15:20 Sodium 142 mmol/L (136-145) 05/24/18 06:09 Potassium 3.8 mmol/L (3.5-5.1) 05/24/18 06:09 BUN 10 mg/dL (7-18) 05/24/18 06:09 Creatinine 0.61 mg/dL (0.55-1.3) 05/24/18 06:09 Glucose 96 mg/dL (74-106) 05/24/18 06:09 Phosphorus 2.8 mg/dL (2.5-4.9) 05/23/18 04:36 Magnesium 2.0 mg/dL (1.8-2.4) 05/23/18 04:36 Total Bilirubin 0.5 mg/dL (0.2-1.0) 05/24/18 06:09 AST 56 U/L (15-37) H 05/24/18 06:09 ALT 98 U/L (12-78) H 05/24/18 06:09 Alkaline Phosphatase 90 U/L (45-117) 05/24/18 06:09 Lipase 68 U/L (73-393) L 05/21/18 15:20 Home Medications: Amox/Clavulanate [Augmentin 500-125 mg Tab*] 500 mg PO BID #14 tab 05/24/18 Ciclopirox [Penlac] 3.3 ml TP DAILY #1 bottle 05/24/18 Econazole Nit [Spectazole 1% Cream*] 1 appl TOP BID #1 tube 05/24/18 New Medications: Amox/Clavulanate [Augmentin 500-125 mg Tab*] 500 mg PO BID #14 tab Ciclopirox [Penlac] 3.3 ml TP DAILY #1 bottle Econazole Nit [Spectazole 1% Cream*] 1 appl TOP BID #1 tube Patient Discharge Instructions: 1. Patient will establish care with a PCP to continue his care. 2. Patient presented to the emergency room with left lower extremity cellulitis. Patient with history of recurrent cellulitis. Patient was treated during his stay. Patient responded to antibiotic therapy. At discharge he will continue with Augmentin 500 mg 1 pill twice daily for 7 days. Hygiene address. Education on prevention of cellulitis will be provided. Recommend for patient to establish care with a PCP to follow up his care. 3. Patient with tenia pedis and unguium. Patient seen and evaluated by podiatry. Patient not a candidate for Lamisil due to elevated liver function. Podiatry recommends antifungal cream to the feet daily. He is to wash his feet daily. He is to keep his feet dry. Podiatry also recommends Ciclopirox drops to the toenails for his tenia unguium. Patient may follow up with podiatry as an outpatient to further address. 4. Patient found have elevated liver function. Hepatitis panel pending at discharge. This can be followed up by his PCP. Abdominal ultrasound shows fatty liver. Education on fatty liver provided. Lifestyle modification education will be provided this well. 5. Patient with obesity, BMI 51.4. Lifestyle modification education and weight loss recommended. 6. Patient may have underlying obstructive sleep apnea. Recommend for sleep study as an outpatient to further evaluate. Diet: AHA Time spent managing pt's care (in minutes): 55
[2018-05-24 15:08] VITALS: BP 157/87
[2018-05-24] MEDS ORDERED: AMOX/K CLAV 500 MG TAB PO SCH (21:00)
[2018-05-24] MEDS ORDERED: ECONAZOLE NITRATE 1% CREAM 15GM TOP SCH (21:00)
[2018-05-26 15:59] LABS: Hepatitis C Virus RNA (PCR)log <1.18 log IU/mL
== END 2018-05-24 13:38 | disposition home or self-care (01) | DRG 872 ==
LOC: ER 14:32 → ERHOLD 17:00 → 2ND 20:04
PROVIDERS: ATTEND Family Medicine
DX: A41.9 Sepsis, unspecified organism (principal); L03.116 Cellulitis of left lower limb; Z68.43 Body mass index [BMI] 50.0-59.9, adult; E66.9 Obesity, unspecified; R94.5 Abnormal results of liver function studies; K76.0 Fatty (change of) liver, not elsewhere classified; G47.33 Obstructive sleep apnea (adult) (pediatric); B35.1 Tinea unguium; B35.3 Tinea pedis; I89.1 Lymphangitis; F17.210 Nicotine dependence, cigarettes, uncomplicated; D72.829 Elevated white blood cell count, unspecified
CPT/HCPCS: 36415; 71045; 76705; 80048; 80053; 80076; 80202; 80307; 81003; 83605; 83690; 83735; 84100; 84145; 84443; 85025; 85610; 85730; 86705; 87040; 87522; 93005; 93970; 96361; 96365; 96375; 99285; J1650; J2543; J3370; J7030; S0077

== ENCOUNTER 2018-07-25 15:07 | Inpatient (IN) | payer SELFPAY ==
[2018-07-25] MEDS ORDERED: IBUPROFEN 400 MG TAB ONE (15:46)
[2018-07-25] MEDS ORDERED: Levofloxacin 750mg IV 750 MG/150 ML BAG IV ONE (15:46)
[2018-07-25] MEDS ORDERED: NA CHLORIDE 0.9% 3,000 ML ONE (15:46)
--- NOTE | 2018-07-25 15:46 | EDPHYS ---
Physician Documentation [facility] Name: Suhas Cardona Age: 22 yrs Sex: Male : 1995 Arrival Date: 07/25/2018 Time: 15:09 Bed 26 Private MD: None, None ED Physician Emiliano Augustin HPI: 07/25 15:39 This 22 yrs old Male presents to ER via Ambulatory with complaints of Leg Pain.jr8 15:39 The complaints affect the left herrera. Context: The problem was sustained at an unknown [facility] site, resulted from an unknown cause. Onset: The symptoms/episode began/occurred gradually, 2 day(s) ago. Modifying factors: The symptoms are alleviated by nothing. the symptoms are aggravated by nothing. Associated signs and symptoms: Pertinent positives: fever. Severity of symptoms: At their worst the symptoms were moderate, in the emergency department the symptoms are unchanged. The patient has experienced a previous episode. The patient has not recently seen a physician. Patient stated that [place] beach and cut his [place] foot. Did not notice anything until his lower leg started to hurt and now running fevers . Historical: - Allergies: 15:15 No Known Allergies; sv - PMHx: 15:15 Cellulitis; sv - PSHx: 15:15 None; sv - Immunization history:: Adult Immunizations up to date. - Social history:: Smoking status: Patient/guardian denies using tobacco. - Ebola Screening: : No symptoms or risks identified at this time. ROS: 15:39 Eyes: Negative for injury, pain, redness, and discharge, ENT: Negative for injury, jr8 pain, and discharge, Neck: Negative for injury, pain, and swelling, Cardiovascular: Negative for chest pain, palpitations, and edema, Respiratory: Negative for shortness of breath, cough, wheezing, and pleuritic chest pain, Abdomen/GI: Negative for abdominal pain, nausea, vomiting, diarrhea, and constipation, Back: Negative for injury and pain, Neuro: Negative for headache, weakness, numbness, tingling, and seizure. 15:39 MS/extremity: Positive for erythema, pain, swelling, warmth, of the left leg. Exam: 15:39 Eyes: Pupils equal round and reactive to light, extra-ocular motions intact. Lids and jr8 lashes normal. Conjunctiva and sclera are non-icteric and not injected. Cornea within normal limits. Periorbital areas with no swelling, redness, or edema. ENT: Nares patent. No nasal discharge, no septal abnormalities noted. Tympanic membranes are normal and external auditory canals are clear. Oropharynx with no redness, swelling, or masses, exudates, or evidence of obstruction, uvula midline. Mucous membranes moist. Neck: Trachea midline, no thyromegaly or masses palpated, and no cervical lymphadenopathy. Supple, full range of motion without nuchal rigidity, or vertebral point tenderness. No Meningismus. Cardiovascular: Regular rate and rhythm with a normal S1 and S2. No gallops, murmurs, or rubs. Normal PMI, no JVD. No pulse deficits. Respiratory: Lungs have equal breath sounds bilaterally, clear to auscultation and percussion. No rales, rhonchi or wheezes noted. No increased work of breathing, no retractions or nasal flaring. Abdomen/GI: Soft, non-tender, with normal bowel sounds. No distension or tympany. No guarding or rebound. No evidence of tenderness throughout. Back: No spinal tenderness. No costovertebral tenderness. Full range of motion. MS/ Extremity: Pulses equal, no cyanosis. Neurovascular intact. Full, normal range of motion. Neuro: Awake and alert, GCS 15, oriented to person, place, time, and situation. Cranial nerves II-XII grossly intact. Motor strength 5/5 in all extremities. Sensory grossly intact. Cerebellar exam normal. Normal gait. 15:39 Skin: Patient has small 1 cm well healed cut to sole of left foot. No erythema, bruising, or discharge noted to area. Left lower portion of leg with erythema, warmth, swelling, and tenderness. Vital Signs: 15:15 BP 156 / 88; Pulse 139; Resp 20; Temp 100.6(O); Pulse Ox 96% ; Weight 179.17 kg; Height sv 6 ft. 0 in. (182.88 cm); Pain 2/10; 17:01 BP 118 / 50; Pulse 125; Resp 20; Pulse Ox 98% on R/A; la1 17:34 BP 145 / 80; Pulse 120; Resp 16; Pulse Ox 98% on R/A; la1 18:16 BP 107 / 95; Pulse 125; Resp 18; Pulse Ox 96% ; la1 15:15 Body Mass Index 53.57 (179.17 kg, 182.88 cm) sv MDM: 15:16 Patient medically screened. 8 15:39 Data reviewed: vital signs, nurses notes, lab test result(s), and as a result, I will jr8 admit patient. Data interpreted: Pulse oximetry: on room air is 96 %. Interpretation: normal. Counseling: I had a detailed discussion with the patient and/or guardian regarding: the historical points, exam findings, and any diagnostic results supporting the discharge/admit diagnosis, lab results, the need for further work-up and treatment in the hospital. Physician consultation: Sergey Rosejenniferbenji YOUNG was called at 15:44, was contacted at 15:44, regarding admission, to the telemetry unit. consult, patient's condition. 07/25 15:30 Order name: Basic Metabolic Panel; Complete Time: 16:52 [facility] 07/25 15:30 Order name: Blood Culture Adult (2) [facility] 07/25 15:30 Order name: CBC with Diff; Complete Time: 16:52 [facility] 07/25 15:30 Order name: Lactate; Complete Time: 16:52 [facility] 07/25 15:30 Order name: LFT's; Complete Time: 16:52 [facility] 07/25 15:30 Order name: Procalcitonin; Complete Time: 16:52 [facility] 07/25 15:30 Order name: Accucheck; Complete Time: 15:50 [facility] 07/25 15:30 Order name: Cardiac monitoring; Complete Time: 15:56 [facility] 07/25 15:30 Order name: EKG - Nurse/Tech; Complete Time: 15:56 [facility] 07/25 15:45 Order name: Glucose, Ancillary Testing; Complete Time: 15:54 [facility] 07/25 15:30 Order name: IV Saline Lock - Large Bore; Complete Time: 15:50 [facility] 07/25 15:30 Order name: Labs collected and sent; Complete Time: 15:55 [facility] 07/25 15:30 Order name: O2 Per Protocol; Complete Time: 15:55 [facility] 07/25 15:30 Order name: O2 Sat Monitoring; Complete Time: 15:56 [facility] Administered Medications: 15:50 Drug: Motrin 800 mg Route: PO; la1 18:29 Follow up: Response: Temperature is decreased rv 15:50 Drug: NS 0.9% (30 ml/kg) 30 ml/kg Route: IV; Rate: bolus; Site: right antecubital; la1 15:51 Follow up: IV Status: Infusion continued upon admission la1 18:29 Follow up: IV Intake: 3000ml rv 17:01 Drug: Zosyn 3.375 grams Route: IVPB; Infused Over: 60 mins; Site: right antecubital; la1 18:27 Follow up: IV Status: Infusion continued upon admission; IV Intake: 100ml rv 18:30 Drug: LevaQUIN 750 mg Volume: 150 ml; Route: IVPB; Infused Over: 90 mins; Site: right rv antecubital; 18:30 Follow up: IV Status: Infusion continued upon admission rv Point of Care Testing: Blood Glucose: 15:42 Blood Glucose: 97 mg/dL; lt1 Ranges: Critical Glucose Levels:Adult <50 mg/dl or >400 mg/dl <40 mg/dl or >180 mg/dl Disposition: 07/26 07:54 Co-signature as Attending Physician, Emiliano Augustin MD I agree with the assessment and zandra plan of care. Disposition: 07/25/18 15:45 Hospitalization ordered by Sergey Wynn for Inpatient Admission. Preliminary diagnosis are Cellulitis of left lower limb, Sepsis. - Bed requested for Telemetry/MedSurg (Inpatient). - Status is Inpatient Admission. rv - Condition is Stable. - Problem is new. - Symptoms have improved. UTI on Admission? No Signatures: Dispatcher [employer] Laurie Reich RN RN sv Anderson, Corey, MD MD cha Solis, Maria ms Beny Summers PA PA jr8 Kehinde Gant RN RN laAsa Carrington RN RN rv Corrections: (The following items were deleted from the chart) 07/25 17:51 15:45 Hospitalization Ordered by Sergey Wynn DO for Inpatient Admission. Preliminary ms diagnosis is Cellulitis of left lower limb; Sepsis. Bed requested for Telemetry/MedSurg (Inpatient). Status is Inpatient Admission. Condition is Stable. Problem is new. Symptoms have improved. UTI on Admission? No. jr8 18:31 17:51 07/25/2018 15:45 Hospitalization Ordered by Sergey Prezas DO for Inpatient rv Admission. Preliminary diagnosis is Cellulitis of left lower limb; Sepsis. Bed requested for Telemetry/MedSurg (Inpatient). Status is Inpatient Admission. Condition is Stable. Problem is new. Symptoms have improved. UTI on Admission? No. ms
--- NOTE | 2018-07-25 15:46 | ER ---
Nurse's Notes [facility] Name: Suhas Cardona Age: 22 yrs Sex: Male : 1995 Arrival Date: 07/25/2018 Time: 15:09 Bed 26 Private MD: None, None Diagnosis: Cellulitis of left lower limb;Sepsis Presentation: 07/25 15:14 Presenting complaint: Patient states: LLE pain x 1 day. Reports having an open cut and sv going to the beach. Hx cellulitis. Transition of care: patient was not received from another setting of care. Onset of symptoms was July 24, 2018. Care prior to arrival: None. 15:14 Method Of Arrival: Ambulatory sv 15:14 Acuity: JUNIOR 2 sv 15:18 Presenting complaint: Patient states: Took tylenol at 1400. Risk Assessment: Do you la1 want to hurt yourself or someone else? Patient reports no desire to harm self or others. Initial Sepsis Screen: Does the patient meet any 2 criteria? Yes Does the patient have a suspected source of infection? Yes: If YES to both, name of provider notified: Beny CRUZ Historical: - Allergies: 15:15 No Known Allergies; sv - PMHx: 15:15 Cellulitis; sv - PSHx: 15:15 None; sv - Immunization history:: Adult Immunizations up to date. - Social history:: Smoking status: Patient/guardian denies using tobacco. - Ebola Screening: : No symptoms or risks identified at this time. Screenin:52 Abuse screen: Denies threats or abuse. Nutritional screening: No deficits noted. la1 Tuberculosis screening: No symptoms or risk factors identified. Fall Risk None identified. Assessment: 15:51 General: Appears in no apparent distress. Behavior is calm, cooperative. Pain: la1 Complains of pain in left leg. Neuro: Level of Consciousness is awake, alert, obeys commands, Oriented to person, place, time, situation. Cardiovascular: Capillary refill < 3 seconds Patient's skin is warm and dry. Respiratory: Airway is patent Respiratory effort is even, unlabored, Respiratory pattern is regular, symmetrical, Breath sounds are clear bilaterally. GI: Abdomen is non-distended, obese, Bowel sounds present X 4 quads. Patient currently denies diarrhea, nausea, vomiting. : No signs and/or symptoms were reported regarding the genitourinary system. Derm: LLE swollen and red. 17:04 Reassessment: Patient appears in no apparent distress at this time. No changes from la1 previously documented assessment. Patient and/or family updated on plan of care and expected duration. Pain level reassessed. Patient is alert, oriented x 3, equal unlabored respirations, skin warm/dry/pink. 17:35 Reassessment: Patient appears in no apparent distress at this time. No changes from la1 previously documented assessment. Patient and/or family updated on plan of care and expected duration. Pain level reassessed. Patient is alert, oriented x 3, equal unlabored respirations, skin warm/dry/pink. Vital Signs: 15:15 BP 156 / 88; Pulse 139; Resp 20; Temp 100.6(O); Pulse Ox 96% ; Weight 179.17 kg; Height sv 6 ft. 0 in. (182.88 cm); Pain 2/10; 17:01 BP 118 / 50; Pulse 125; Resp 20; Pulse Ox 98% on R/A; la1 17:34 BP 145 / 80; Pulse 120; Resp 16; Pulse Ox 98% on R/A; la1 18:16 BP 107 / 95; Pulse 125; Resp 18; Pulse Ox 96% ; la1 15:15 Body Mass Index 53.57 (179.17 kg, 182.88 cm) sv ED Course: 15:09 Patient arrived in ED. mr 15:09 None, None is Private Physician. mr 15:14 Triage completed. sv 15:16 Beny Summers PA is PHCP. jr8 15:16 Emiliano Augustin MD is Attending Physician. jr8 15:17 Kehinde Gant, CHANTELL is Primary Nurse. la1 15:18 Arm band placed on right wrist. la1 15:44 Sergey Wynn DO is Hospitalizing Provider. jr8 15:47 First set of blood cultures drawn by ED staff, EKG done, by ED staff. lt1 15:52 Call light in reach. Side rails up X 1. la1 15:52 No provider procedures requiring assistance completed. Inserted saline lock: 18 gauge la1 in left antecubital area, using aseptic technique. Blood collected. 16:05 Missed attempt(s): 20 gauge in right antecubital area. lt1 16:54 Second set of blood cultures drawn by me. lt1 17:00 Blood Culture Adult (2) Sent. lt1 18:16 Patient admitted, IV remains in place. intact. la1 Administered Medications: 15:50 Drug: Motrin 800 mg Route: PO; la1 18:29 Follow up: Response: Temperature is decreased rv 15:50 Drug: NS 0.9% (30 ml/kg) 30 ml/kg Route: IV; Rate: bolus; Site: right antecubital; la1 15:51 Follow up: IV Status: Infusion continued upon admission la1 18:29 Follow up: IV Intake: 3000ml rv 17:01 Drug: Zosyn 3.375 grams Route: IVPB; Infused Over: 60 mins; Site: right antecubital; la1 18:27 Follow up: IV Status: Infusion continued upon admission; IV Intake: 100ml rv 18:30 Drug: LevaQUIN 750 mg Volume: 150 ml; Route: IVPB; Infused Over: 90 mins; Site: right rv antecubital; 18:30 Follow up: IV Status: Infusion continued upon admission rv Point of Care Testing: Blood Glucose: 15:42 Blood Glucose: 97 mg/dL; lt1 Ranges: Intake: 18:27 IV: 100ml; Total: 100ml. rv 18:29 IV: 3000ml; Total: 3100ml. rv Outcome: 15:45 Decision to Hospitalize by Provider. jr8 18:30 Admitted to Tele accompanied by tech, via wheelchair, room 423, with chart, Report rv called to RN 18:30 Condition: good 18:30 Instructed on the need for admit. 18:31 Patient left the ED. rv Signatures: Laurie Perdomo, RN Rocio Berg mr Kristopher, Beny, PA PA jr8 Kehinde Gant RN RN laAsa Carrington RN RN rv Tran, Leah lt1 Corrections: (The following items were deleted from the chart) 15:15 15:14 Acuity: JUNIOR 3 sv apolinar
[2018-07-25] MEDS ORDERED: PIPER/TAZO/NS 3.375gm 3.375 GM/100 ML BAG ONE (15:47)
[2018-07-25 16:29] LABS: ALT/SGPT 145 U/L (12-78); AST/SGOT 61 U/L (15-37); Albumin 4.1 g/dL (3.4-5.0); Alkaline Phosphatase 143 U/L (45-117); BUN Blood Urea Nitrogen 12 mg/dL (7-18); Bicarbonate 29 mmol/L (21-32); Bilirubin Direct 0.1 mg/dL (0-0.2); Bilirubin Total 0.5 mg/dL (0.2-1.0); Glucose Level 95 mg/dL (74-106); Potassium 3.6 mmol/L (3.5-5.1); Protein, Total 9.1 g/dL (6.4-8.2); Sodium Level 140 mmol/L (136-145)
[2018-07-25 16:33] LABS: Absolute Lymphocytes (CBC) 1.7 K/uL (0.7-4.9); Absolute Monocytes 0.9 K/uL (0.1-1.3); Basophils % 0.7 % (0-1.3); Eosinophils % 0.3 % (0-4.4); Hematocrit 49.4 % (39.6-49.0); Lymphocytes % 10.7 % (15.3-44.8); MPV 9.8 fL (7.6-11.3); Monocytes % 5.6 % (3.3-12.3)
--- NOTE | 2018-07-25 16:37 | P.HP ---
Certification for Inpatient Patient admitted to: Inpatient With expected LOS: >2 Midnights Patient will require the following post-hospital care: None Practitioner: I am a practitioner with admitting privileges, knowledge of patient current condition, hospital course, and medical plan of care. Services: Services provided to patient in accordance with Admission requirements found in Title 42 Section 412.3 of the Code of Federal Regulations Patient History Date of Service: 07/25/18 Primary Care Provider: None Reason for admission: Left lower extremity edema, pain History of Present Illness: 22-year-old male presented to the emergency room with left lower extremity edema and pain. Patient reports history of fatty liver and frequent left lower extremity cellulitis due to onychomycosis and fungal dermatitis to the feet. Patient reports 4 prior infections to the left lower extremity. Patient was last hospitalized in May. Patient went to the beach yesterday. He was out in the water. Overnight he noted increasing erythema and swelling to the left lower extremity. It started from the foot up to the leg below the knee. Patient also reported fever, chills. Patient came to the ER for further evaluation. In the ER patient was tachycardic. He was febrile as well. Patient found to have left lower extremity cellulitis with sepsis. Lab pending at this time. Cultures obtained. Patient admitted for treatment. Allergies No Known Allergies Allergy (Verified 05/21/18 20:57) Home medications list reviewed: Yes Home Medications: Amox/Clavulanate [Augmentin 500-125 mg Tab*] 500 mg PO BID #14 tab 05/24/18 Ciclopirox [Penlac] 3.3 ml TP DAILY #1 bottle 05/24/18 Econazole Nit [Spectazole 1% Cream*] 1 appl TOP BID #1 tube 05/24/18 - Past Medical/Surgical History Diabetic: No -: Obesity -: Recurrent left lower extremity cellulitis -: Fatty liver -: Onychomycosis of the nail beds -: Fungal dermatitis -: Former tobacco use -: Alcohol use -: none Psychosocial/ Personal History: Patient is . He has 1 child. 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 - Family History Family History: Reviewed- Non-Contributory - Family History Mother Notes: no medical history per patient - Social History Smoking Status: Former smoker Alcohol use: Yes CD- Drugs: No Caffeine use: Yes Place of Residence: Home Review of Systems General: Fever, Chills, As per HPI Eyes: Unremarkable ENT: Unremarkable Respiratory: Unremarkable Cardiovascular: As per HPI (Tachycardia ) Gastrointestinal: Unremarkable Musculoskeletal: Unremarkable Integumentary: As per HPI Neurological: As per HPI Lymphatics: Unremarkable Physical Examination - Physical Exam General: Alert, In no apparent distress, Oriented x3, Cooperative HEENT: Atraumatic, Normocephalic, PERRLA, Other (Dry mucous membranes), EOMI Neck: Supple, No Thyromegaly Respiratory: Clear to auscultation bilaterally, Normal air movement Cardiovascular: Abnormal pulses (Sinus tachycardia) Gastrointestinal: Normal bowel sounds, Soft and benign, Non-distended, No tenderness, No masses, No rebound, No guarding, Other (Morbidly obese) Musculoskeletal: Other (Left lower extremity swelling and erythema below the knee. Erythema is circumferential. Fungal dermatitis noted to the feet bilaterally. Onychomycosis noted to the nail beds of the feet.) Integumentary: Other (As above ) Neurological: Normal speech, Normal strength at 5/5 x4 extr, Normal tone, Normal affect Assessment and Plan - Plan Impression: Sepsis secondary to left recurrent left lower extremity cellulitis with fungal dermatitis and onychomycosis to the nail beds Fatty liver Tobacco use Alcohol use Obesity Plan: Sepsis secondary to left recurrent left lower extremity cellulitis with fungal dermatitis and onychomycosis to the nail beds: Patient will be admitted for further evaluation and treatment. Await lab results. Sepsis protocol initiated in emergency room. Patient to get fluid bolus per protocol. Will continue with aggressive IV fluids. Patient has been started on IV antibiotic therapy. Will continue with IV vancomycin and Levaquin. Blood cultures obtained. Will consult Infectious Disease due to his recurrent cellulitis. Await recommendations. Patient will be counseled on prevention of cellulitis and a fungal dermatitis. Patient has seen Podiatry in the hospital for his fungal dermatitis and onychomycosis on his last hospitalization. Patient will need to see Podiatry as an outpatient to further evaluate and treat. Will continue to monitor lab closely. Will provide Lovenox for DVT prophylaxis. Will provide medication for pain. Will continue to reassess. Will have the compressor stations superintendent reassess later tonight. I will turn the service over to Dr. Tang tomorrow. I will go over the plan of care with her. Fatty liver: Dietary lifestyle modification education will be provided. This can be further monitored as an outpatient with GI. Tobacco use: Tobacco cessation addressed in detail. Patient may require nicotine patch. Alcohol use: Will provide alcohol cessation education Obesity: Will continue with lifestyle modification education. Discharge Plan: Home Plan to discharge in: Greater than 2 days - Advance Directives Does patient have a Living Will: Yes Does patient have a Durable POA for Healthcare: No - Code Status/Comfort Care Code Status Assessed: Yes (Patient is full code) Time Spent Managing Pts Care (In Minutes): 55
[2018-07-25] MEDS ORDERED: Levofloxacin 750mg IV 750 MG/150 ML BAG IV SCH (18:30)
[2018-07-25] MEDS ORDERED: ACETAMINOPHEN 500 MG TAB PO PRN (18:31)
[2018-07-25] MEDS ORDERED: MORPHINE 2 MG/ML SYR IV PRN (18:31)
[2018-07-25] MEDS ORDERED: HYDROCODONE/APAP 7.5/325 MG TAB PO PRN (18:31)
[2018-07-25] MEDS ORDERED: TRAMADOL HCL 50 MG TAB PO PRN (18:31)
[2018-07-25] MEDS ORDERED: IBUPROFEN 400 MG TAB PO PRN (18:31)
[2018-07-25 18:35] VITALS: BMI 50.1
[2018-07-25] MEDS ORDERED: PNEUMOCOCCAL VACCINE 0.5 ML IMVAC ONE (19:00)
[2018-07-25 19:48] LABS: Urine Appearance CLEAR; Urine Bilirubin NEGATIVE (NEG); Urine Blood NEGATIVE (NEG); Urine Color YELLOW; Urine Glucose NEGATIVE (NEG); Urine Protein NEGATIVE (NEG); Urine Urobilinogen 0.2 mg/dL (0.2-1.0)
[2018-07-25 19:50] LABS: Urine Microscopic Reflex NO UMIC
[2018-07-25] MEDS: NA CHLORIDE 0.9% 1,000 ML IV SCH (20:09)
[2018-07-25] MEDS: KETOCONAZOLE CREAM 15 GM TUBE TOP SCH (20:10)
[2018-07-25] MEDS: MUPIROCIN 2% OINT 22GM TUBE TOP SCH (20:10)
[2018-07-25] MEDS ORDERED: VANCOMYCIN 3 GM in NA CHLORIDE 0.9% 500 ML IVPB ONE (21:00)
[2018-07-26] MEDS: NA CHLORIDE 0.9% 1,000 ML IV SCH ×2 (02:19→08:55)
[2018-07-26 04:48] VITALS: O2SAT 95
[2018-07-26 06:27] LABS: Absolute Lymphocytes (CBC) 1.7 K/uL (0.7-4.9); Absolute Monocytes 0.6 K/uL (0.1-1.3); Absolute Neutrophil 8.3 K/uL (1.8-8.0); Basophils % 0.4 % (0-1.3); Eosinophils % 0.2 % (0-4.4); Hematocrit 45.2 % (39.6-49.0); MPV 9.7 fL (7.6-11.3); Monocytes % 5.8 % (3.3-12.3); RBC Red Blood Cell Count 5.26 M/uL (4.33-5.43)
[2018-07-26 06:42] LABS: BUN Blood Urea Nitrogen 7 mg/dL (7-18); Bicarbonate 25 mmol/L (21-32); Glucose Level 111 mg/dL (74-106); Magnesium 1.8 mg/dL (1.8-2.4); Potassium 3.5 mmol/L (3.5-5.1); Sodium Level 139 mmol/L (136-145)
--- NOTE | 2018-07-26 07:21 | RAD REPORT ---
EXAM DESCRIPTION: US - Extrem Venous W Compress Mark - 07/25/2018 10:23 pm CLINICAL HISTORY: Cellulitis, bilateral leg pain and swelling COMPARISON: DVT study May 2018 TECHNIQUE: Real-time sonographic evaluation of the bilateral lower extremity common femoral, superfi cial femoral, popliteal and posterior tibial veins was performed. FINDINGS: Normal compressibility, flow augmentation, phasic flow and spontaneous flow are identified in the left and right lower extremity common femoral, superficial femoral, popliteal and posterior t ibial veins. No intraluminal filling defects seen. IMPRESSION: No DVT in either lower extremity.
--- NOTE | 2018-07-26 07:45 | EKG ---
Test Date: 2018-07-25 Test Time: 15:58:11 Licensed Nurse Practitioner: SHAYLAT MEASUREMENT RESULTS: Intervals: Rate: 126 [place]: 166 QRSD: 82 QT: 284 QTc: 411 [place]: P: 55 [place]: 166 QRS: 35 T: 59 INTERPRETIVE STATEMENTS: Sinus tachycardia Nonspecific T wave abnormality Abnormal ECG Compared to ECG 05/22/2018 10:46:38 T-wave abnormality now present Electronically Signed On 07-26-18 07:44:14 CDT by Robb Ramirez
[2018-07-26] MEDS: KETOCONAZOLE CREAM 15 GM TUBE TOP SCH (08:54)
[2018-07-26] MEDS: MUPIROCIN 2% OINT 22GM TUBE TOP SCH (08:55)
[2018-07-26] MEDS ORDERED: FOLIC ACID 1 MG TABLET PO SCH (09:00)
[2018-07-26] MEDS ORDERED: THIAMINE HCL 100 MG TABLET PO SCH (09:00)
[2018-07-26] MEDS ORDERED: VANCOMYCIN 2 GM in NA CHLORIDE 0.9% 500 ML IVPB SCH (09:00)
--- NOTE | 2018-07-26 10:40 | P.SSS ---
Patient History Date of Service: 07/26/18 Primary Care Provider: None Reason for admission: Left lower extremity edema, pain History of Present Illness: 22-year-old male presented to the emergency room with left lower extremity edema and pain. Patient reports history of fatty liver and frequent left lower extremity cellulitis due to onychomycosis and fungal dermatitis to the feet. Patient reports 4 prior infections to the left lower extremity. Patient was last hospitalized in May. Patient went to the beach yesterday. He was out in the water. Overnight he noted increasing erythema and swelling to the left lower extremity. It started from the foot up to the leg below the knee. Patient also reported fever, chills. Patient came to the ER for further evaluation. In the ER patient was tachycardic. He was febrile as well. Patient found to have left lower extremity cellulitis with sepsis. Lab pending at this time. Cultures obtained. Patient admitted for treatment. Allergies No Known Allergies Allergy (Verified 05/21/18 20:57) Home Medications: Doxycycline Hyclate 100 mg PO BID #28 tablet 07/26/18 Ketoconazole [Nizoral Cream*] 1 appl TOP BID #1 tube 07/26/18 Mupirocin Oint [Bactroban 2% Ointment*] 1 appl TOP BID #1 tube 07/26/18 Thiamine HCl [Vitamin B-1*] 100 mg PO DAILY #30 tablet 07/26/18 - Past Medical/Surgical History Has patient received pneumonia vaccine in the past: No Diabetic: No -: Obesity -: Recurrent left lower extremity cellulitis -: Fatty liver -: Onychomycosis of the nail beds -: Fungal dermatitis -: Former tobacco use -: Alcohol use -: none Psychosocial/ Personal History: Patient is . He has 1 child. 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 moist/pink, EOMI, Sclerae nonicteric Neck: Supple, 2+ carotid pulse no bruit, No LAD, Without JVD or thyroid abnormality Respiratory: Clear to auscultation bilaterally, Normal air movement Cardiovascular: Regular rate/rhythm, Normal S1 S2 Gastrointestinal: Normal bowel sounds, No tenderness Musculoskeletal: Erythema, Other (Marked improvement in the left lower leg cellulitis.) Integumentary: No rashes Neurological: Normal gait, Normal speech, Normal strength at 5/5 x4 extr, Normal tone, Normal affect Lymphatics: No axilla or inguinal lymphadenopathy - Studies Laboratory Data (last 24 hrs) 07/25/18 15:47: WBC 15.7 H, Hgb 16.6, Hct 49.4 H, Plt Count 202 07/25/18 15:47: Sodium 140, Potassium 3.6, BUN 12, Creatinine 0.97, Glucose 95, Total Bilirubin 0.5, AST 61 H, ALT 145 H, Alkaline Phosphatase 143 H - Diagnosis (Problem(s)) (1) Left leg cellulitis Onset Date: 01/28/18 Current Visit: No Status: Acute (2) Elevated liver enzymes Onset Date: 03/28/18 Current Visit: No Status: Chronic (3) Obesity Onset Date: 01/28/18 Current Visit: No Status: Chronic Qualifiers: Obesity classification: adult class 3 (BMI >= 40) Serious obesity comorbidity presence: without serious comorbidity Body mass index: BMI 50.0- 59.9 Treatment Summary: Over all during the hospital stay patient stable Patient was initially admitted to the hospital secondary to left lower leg extremity cellulitis. Most likely secondary to lymphangitis. Patient was started on broad-spectrum antibiotics. Had marked improvement in his symptoms. This was switched over to oral doxycycline. Patient continued to have marked improvement here in the hospital this is discharged home under stable condition. Patient was asked to follow up with infectious disease and lymphedema clinic for further followup. Patient was given a prescription for oral doxycycline to be taken for total of 14 days. Patient also had elevated LFTs while here in the hospital most likely secondary to fatty liver secondary to obesity. Patient was educated extensively on diet and exercise. Patient currently does not have any primary care provider and thus a list of primary care providers was provided. No other complaints to offer from the patient as he was discharged home under stable condition. - Disposition Disposition: ROUTINE DISCHARGE Condition: GOOD Patient Discharge Instructions: Please f.u with PCP and Dr Elena in 1 to 2 days post discharge. New medication. Doxycycline 100mg BID for 14 days Diet: Regular Activity: Ad serenity
[2018-07-26 12:09] VITALS: BP 131/79; TEMP 98.3
[2018-07-26] MEDS ORDERED: Levofloxacin 750mg IV 750 MG/150 ML BAG IV SCH (16:00)
== END 2018-07-26 13:12 | disposition home or self-care (01) | DRG 872 ==
LOC: ER 15:07 → ERHOLD 16:15 → 4TH 18:22
PROVIDERS: ADMIT Family Medicine; ATTEND Family Medicine
DX: A41.9 Sepsis, unspecified organism (principal); L03.116 Cellulitis of left lower limb; Z68.43 Body mass index [BMI] 50.0-59.9, adult; B35.1 Tinea unguium; K76.0 Fatty (change of) liver, not elsewhere classified; E66.01 Morbid (severe) obesity due to excess calories; Z72.89 Other problems related to lifestyle; Z23 Encounter for immunization; Z87.891 Personal history of nicotine dependence
CPT/HCPCS: 36415; 80048; 80076; 81003; 82962; 83605; 83735; 84145; 85025; 87040; 93005; 93970; 94760; 96365; 96375; 99285; J2543; J7030

== ENCOUNTER 2019-06-06 21:15 | Emergency (ER) | payer OTHER, SELFPAY ==
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
[2019-06-07 02:17] VITALS: O2SAT 99
[2019-06-07 02:19] VITALS: BP 134/83
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
== END 2019-06-06 23:12 | disposition home or self-care (01) ==
LOC: ER 21:15
DX: S16.1XXA Strain of muscle, fascia and tendon at neck level, initial encounter (principal); S00.90XA Unspecified superficial injury of unspecified part of head, initial encounter; V43.52XA Car driver injured in collision with other type car in traffic accident, initial encounter; Y93.89 Activity, other specified; Y92.410 Unspecified street and highway as the place of occurrence of the external cause; Z87.891 Personal history of nicotine dependence
CPT/HCPCS: 70450; 72125; 99284